=== PATIENT | female | born 1950 | race African-American/Black ===

== ENCOUNTER 2017-12-18 05:23 | Observation (INO) | payer MEDICARE ==
[2017-12-18 06:06] LABS: INR-International Normal Ratio 3.2; PTT 51.3 SEC (22.9-36.1)
[2017-12-18 06:22] LABS: ALT (SGPT) 16 U/L (8-55); AST (SGOT) 26 U/L (5-34); Albumin 4.2 g/dL (3.4-4.8); Alkaline Phosphatase 107 U/L (40-150); Anion Gap 13 mmol/L (10-20); BUN (Urea Nitrogen) 38 mg/dL (9.8-20.1); Calc. Creatinine Clearance 0 mL/min (70-130); Calcium 10.6 mg/dL (7.8-10.44); Carbon Dioxide 28 mmol/L (23-31); Chloride 104 mmol/L (98-107); Estimated GFR-MDRD 45; Globulin 3.5 g/dL (2.4-3.5); Glucose 213 mg/dL (80-115); Potassium 3.9 mmol/L (3.5-5.1); Protein, Total 7.7 g/dL (6.0-8.3); Sodium 141 mmol/L (136-145)
[2017-12-18 06:23] LABS: #Basophils 0.1 thou/uL (0.0-0.2); #Lymphocytes 0.8 thou/uL (1.20-3.40); #Monocytes 0.6 thou/uL (0.11-0.59); #Neutrophils 4.9 thou/uL (1.40-6.50); %Basophils 0.8 % (0.0-1.0); %Eosinophils 0.6 % (0.0-10.0); %Lymphocytes 12.4 % (21.0-51.0); %Neutrophils 77.2 % (42.0-75.0); Hemoglobin 11.2 g/dL (12.0-16.0); Mean Corpuscular HGB CONC 35.1 g/dL (32.0-36.0); Mean Corpuscular Hemoglobin 29.9 pg (27.0-31.0); Mean Corpuscular Volume 85.3 fL (78.0-98.0); Mean Platelet Volume 9.7 fL (7.4-10.4); PLT Morphology Comment Appears Decreased; Platelet Count 95 thou/uL (130-400); RBC Distribution Width 16.1 % (11.5-14.5); Red Blood Cell (RBC) Count 3.76 mill/uL (4.20-5.40); White Blood Cell (WBC) Count 6.4 thou/uL (4.8-10.8)
[2017-12-18] MEDS ORDERED: Fentanyl 100 MCG/2 ML VIAL ONE (06:32)
--- NOTE | 2017-12-18 06:45 | PDOC.FPRHP ---
- History of Present Illness Chief Complaint: epistaxis History of Present Illness: Patient presents from [place] ED for persistent epistaxis that began at midnight last night. Was packed 3 times in [place], last time with using afferin. No hx trauma. Now reports continued dripping down throat and some anterior dripping past packing. Has history of nose bleeds but never this bad. Last one 2 weeks ago. PCP Ash Alegre in [place]. Pt lives in [place]. ED Course: fentanyl - Allergies/Adverse Reactions Allergies Allergy/AdvReac Type Severity Reaction Status Date / Time No Known Allergies Allergy Verified 12/18/17 09:03 - Home Medications Medication Instructions Recorded Confirmed Type Ascorbic Acid [Vitamin C] 500 mg PO DAILY 12/18/17 12/18/17 History Atorvastatin Calcium 20 mg PO HS 12/18/17 12/18/17 History Furosemide 80 mg PO SEEPHYS 12/18/17 12/18/17 History Iron 27 mg PO DAILY 12/18/17 12/18/17 History Omeprazole 20 mg PO DAILY 12/18/17 12/18/17 History Pnv No.95/Ferrous Fum/Folic AC 1 each PO DAILY 12/18/17 12/18/17 History [ Formula] Potassium 1 tab PO DAILY 12/18/17 12/18/17 History Sennosides 17.2 mg PO HS PRN 12/18/17 12/18/17 History Spironolactone 25 mg PO DAILY 12/18/17 12/18/17 History Warfarin Sodium 7 mg PO DAILY 12/18/17 12/18/17 History glipiZIDE [Glucotrol XL] 2.5 mg PO QAM-WM 12/18/17 12/18/17 History - History PMHx: CHF, DM, HLD, HTN, a fib PSHx: valve replacement, tubal, L wrist FHx: Noncontributory Social: Lives at home with 2 grandchildren. Ambulates with walker. Denies tobacco, alcohol, drug use. - Review of Systems General: reports: fatigue. denies: fever/chills ENT: reports: other (epistaxis bilateral) Respiratory: denies: cough, shortness of breath Cardiovascular: denies: palpitation, edema Gastrointestinal: denies: vomiting, diarrhea Skin: denies: rashes, lesions Musculoskeletal: denies: tenderness, swelling Neurological: denies: syncope, seizure Psychological: denies: anxiety, depression - Vital signs BP: 133/77 HR: 89 Pox: 97% on RA Wt: 81 kg - Physical Exam Constitutional: other (tired, uncomfortable from packing, difficult to speak) HEENT: normocephalic and atraumatic, grossly normal vision, grossly normal hearing, other (bilateral nasal packing in place, starting to soak through. No post nasal bleeding seen. mucus membranes dry.) Neck: FROM, trachea midline Heart: RRR, normal S1/S2, other (3/6 systolic murmur) Lungs: CTAB, no respiratory distress Abdomen: soft, bowel sounds present Musculoskeletal: normal structure, normal tone Neurological: no focal deficit Skin: no rash/lesions FMR H&P: Results - Labs Result Diagrams: 12/18/17 12:03 12/18/17 12:03 Lab results: WBC 6.4 thou/uL (4.8-10.8) 12/18/17 05:49 Hgb 11.2 g/dL (12.0-16.0) L 12/18/17 05:49 Hct 32.1 % (36.0-47.0) L 12/18/17 05:49 MCV 85.3 fL (78.0-98.0) 12/18/17 05:49 Plt Count 95 thou/uL (130-400) L 12/18/17 05:49 Neutrophils % 77.2 % (42.0-75.0) H 12/18/17 05:49 Sodium 141 mmol/L (136-145) 12/18/17 05:49 Potassium 3.9 mmol/L (3.5-5.1) 12/18/17 05:49 Chloride 104 mmol/L (98-107) 12/18/17 05:49 Carbon Dioxide 28 mmol/L (23-31) 12/18/17 05:49 BUN 38 mg/dL (9.8-20.1) H 12/18/17 05:49 Creatinine 1.40 mg/dL (0.6-1.1) H 12/18/17 05:49 Glucose 213 mg/dL (80-115) H 12/18/17 05:49 Calcium 10.6 mg/dL (7.8-10.44) H 12/18/17 05:49 Total Bilirubin 1.0 mg/dL (0.2-1.2) 12/18/17 05:49 AST 26 U/L (5-34) 12/18/17 05:49 ALT 16 U/L (8-55) 12/18/17 05:49 Alkaline Phosphatase 107 U/L (40-150) 12/18/17 05:49 Serum Total Protein 7.7 g/dL (6.0-8.3) 12/18/17 05:49 Albumin 4.2 g/dL (3.4-4.8) 12/18/17 05:49 FMR H&P: A/P - Problem List (1) Epistaxis Current Visit: Yes Status: Acute Code(s): R04.0 - EPISTAXIS (2) MRIIAM (acute kidney injury) Current Visit: Yes Status: Acute Code(s): N17.9 - ACUTE KIDNEY FAILURE, UNSPECIFIED (3) CKD (chronic kidney disease) Current Visit: Yes Status: Acute Code(s): N18.9 - CHRONIC KIDNEY DISEASE, UNSPECIFIED (4) Heart valve replaced Current Visit: Yes Status: Acute Code(s): Z95.2 - PRESENCE OF PROSTHETIC HEART VALVE (5) Atrial fibrillation Current Visit: Yes Status: Acute Code(s): I48.91 - UNSPECIFIED ATRIAL FIBRILLATION (6) CHF (congestive heart failure) Current Visit: Yes Status: Acute Code(s): I50.9 - HEART FAILURE, UNSPECIFIED (7) Diabetes Current Visit: Yes Status: Acute Code(s): E11.9 - TYPE 2 DIABETES MELLITUS WITHOUT COMPLICATIONS (8) HTN (hypertension) Current Visit: Yes Status: Acute Code(s): I10 - ESSENTIAL (PRIMARY) HYPERTENSION (9) HLD (hyperlipidemia) Current Visit: Yes Status: Acute Code(s): E78.5 - HYPERLIPIDEMIA, UNSPECIFIED - Plan 67 year old F with hx of afib, valve replacement on warfarin presents with persistent epistaxis Persistent epistaxis, nontraumatic - 3rd packing in place, bilaterally. Current packed placed around 4-5am. Bleeding appears to have slowed. - on warfarin with supratherapeutic INR of 3.2. Hold warfarin for now. - VSS - will plan to remove packing this am. If epistaxis persists will consider ENT consult. CKD with possible MIRIAM - unknown baseline, pt reports some mild kidney disease - mucous membranes seem dry - LR @125, however considering hx of CHF may discontinue fluids later this am Normocytic Anemia - Hgb 11.2 - hx of anemia, takes iron supplements Atrial fibrillation - with supratherapeutic INR on warfarin DM - on glipizide at home - accuchecks, SSI CHF - unknown EF - on furosemide 80 bid and spironolactone at home HLD - on atorvastatin at home Hx heart valve replacement Code: FULL Dispo: admit to medicine floor for observation. Possible d/c later today pending epistaxis resolution. FMR H&P: Upper Level - Pertinent history 67 yo AAF with PMH of afib on chronic anticoagulation, HTN, DM2, CHF presenting with recurrent nosebleed. Pt reports began early this morning and could not control it, presented to [place] ER where despite multiple attempts at placing nasal rockets and afrin, bleeding continued. Pt has experienced this before but not to this degree. She notes it is difficult to speak due to discomfort but denies other complaints. PCP: Dr. Ash [place], [place] - Pertinent findings Gen: well developed in NAD HEENT: intranasal packing BL, left blood tinged, mildly dry MMs CV: RRR Resp: normal effort, good air movement - Plan Date/Time: 12/18/17 0645 I, Albino Ahmadi MD PGY3, have evaluated this patient and agree with findings/ plan as outlined by security intern resident. Pertinent changes/additions are listed here. 1. Nontraumatic epistaxis in setting of supratherapeutic INR -Pt on chronic anticoagulation due to hx of atrial fibrillation and presents with difficult to control epistaxis and mildly supratherapeutic INR of 3.4. -Will observe for resolution and consider ENT consult if further intervention needed. -Hgb stable and pt not tachycardic indicating minimal blood loss. -INR already downtrended to 3.2, continue to monitor. 2. Supratherapeutic INR -Continue to monitor 3. MIRIAM -LR @ 125, continue to monitor 4. Normocytic anemia -Stable with no need for intervention at this time, continue to monitor Home medications will be continued for chronic medical conditions. FULL code PPx: Warfarin for VTE, no GI indicated. disposition: Admit to medical observation for anticipated length of stay less than two midnights, pending clinical course. Attending Addendum - Attending Addendum Date/Time: 12/18/17 3070 I personally evaluated the patient and discussed the management with Dr. Mayfield. I agree with the History, Examination, Assessment and Plan documented above with any addition or exceptions noted below. The patient was transferred from outside er for persistent epistaxis. ENT is being consulted as she continues to bleed. Will will repeat H/H later today. Trying to determine what type of valve the patient has so that we can see if INR is supratherapeutic or therapeutic. Pharmacy will help get med rec. Will follow ENT recs.
[2017-12-18] MEDS ORDERED: Ondansetron ODT 4 MG TAB SL PRN (07:58)
[2017-12-18] MEDS ORDERED: Ondansetron PF 4 MG/2 ML Vial IVP PRN ×2 (07:58→08:19)
[2017-12-18] MEDS ORDERED: Dextrose 50% Abboject 50 ML SYRINGE SLOW IVP PRN (08:19)
[2017-12-18] MEDS ORDERED: Dextrose 5% in Water 1,000 ML IV PRN (08:19)
[2017-12-18 08:47] VITALS: BMI 34.5
[2017-12-18] MEDS: Lactated Ringer's 1,000 ML IV SCH ×2 (09:35→16:03)
[2017-12-18] MEDS ORDERED: Oxymetazoline HCl 0.05% ( 15 ML ) NASAL SCH (10:00)
--- NOTE | 2017-12-18 12:31 | CON ---
DATE OF CONSULTATION: 12/18/2017 REASON FOR CONSULTATION: The patient seen for evaluation of epistaxis. BRIEF HISTORY: This is a 67-year-old female who is currently on blood thinners. She noted that she had a nosebleed that started on her left side last night around midnight. She presented to the emerg ency room. She reports by that time she felt she had blood coming from both nostrils, had placed pac ks bilaterally and reports that the bleeding has been continued, but intermittent. PAST MEDICAL HISTORY: Coronary artery disease, hypertension, atrial fibrillation, aortic valve repla cement. PAST SURGICAL HISTORY: Aortic valve replacement. MEDICATIONS: See attached medication list. PHYSICAL EXAMINATION: GENERAL: The patient is resting comfortably in bed. HEENT: Bilateral nasal packs are in place. There is no current active bleeding. Afrin was placed i nto the nasal cavity. Oral cavity, pharynx, no active red bleeding is noticed unless the patient s trains. EARS: TMs intact. Middle ears are well aerated. NECK: No lymphadenopathy or masses. PROCEDURE: Left pack was removed and an inflatable Rhinorocket pack was placed in the left nasal cav ity and was inflated with 4 mL of normal saline. There was no further active bleeding. ASSESSMENT: 1. Epistaxis. 2. Bleeding disorder from medication use. PLAN: We will leave her bilateral packs in place, tomorrow we anticipate removing the right nasal pa ck if there is no further bleeding and possibly remove the left nasal pack on Monday. In the mean time her primary care team will help assist with her Coumadin levels.
[2017-12-18 12:41] LABS: Hemoglobin 10.9 g/dL (12.0-16.0); Platelet Count 96 thou/uL (130-400)
[2017-12-18 13:27] LABS: ALT (SGPT) 14 U/L (8-55); AST (SGOT) 26 U/L (5-34); Alkaline Phosphatase 97 U/L (40-150); Anion Gap 14 mmol/L (10-20); BUN (Urea Nitrogen) 35 mg/dL (9.8-20.1); Calc. Creatinine Clearance 58 mL/min (70-130); Calcium 10.4 mg/dL (7.8-10.44); Carbon Dioxide 27 mmol/L (23-31); Chloride 106 mmol/L (98-107); Estimated GFR-MDRD 52; Globulin 3.3 g/dL (2.4-3.5); Glucose 167 mg/dL (80-115); Protein, Total 7.3 g/dL (6.0-8.3); Sodium 143 mmol/L (136-145)
[2017-12-18] MEDS ORDERED: Senokot 8.6 MG TAB PO PRN (15:51)
[2017-12-18] MEDS: Furosemide 80 MG TAB PO SCH (16:32)
[2017-12-18] MEDS: Atorvastatin Calcium 20 MG TAB PO SCH (20:01)
[2017-12-18] MEDS: Acetaminophen 325 MG TAB PO PRN (22:18)
[2017-12-19] MEDS: Lactated Ringer's 1,000 ML IV SCH ×2 (00:42→07:29)
[2017-12-19 04:41] LABS: Hemoglobin 10.1 g/dL (12.0-16.0)
[2017-12-19] MEDS: Acetaminophen 325 MG TAB PO PRN ×2 (04:41→17:10)
[2017-12-19 04:53] LABS: Prothrombin Time 31.2 SEC (12.0-14.7)
--- NOTE | 2017-12-19 06:55 | PDOC.FM ---
- Subjective Subjective: Pt reports feeling well this AM. Reports she believes the bleeding has stopped. Tolerating good PO intake. No complaints at this time. no fever/chills, no cp no palpitations, no sob no cough - Objective MAR Reviewed: Yes Vital Signs & Weight: Vital Signs (12 hours) Temp Pulse Resp BP Pulse Ox 12/19/17 04:00 98.7 F 52 L 20 125/77 95 12/19/17 00:00 99.4 F 96 20 109/66 94 L 12/18/17 19:30 98.7 F 106 H 20 135/81 92 L Weight Weight 85.757 kg Result Diagrams: 12/19/17 04:30 12/18/17 12:03 <Alexsander Boyer - Last Filed: 12/19/17 07:59> - Objective Vital Signs & Weight: Vital Signs (12 hours) Temp Pulse Resp BP Pulse Ox 12/19/17 16:47 100.3 F H 99 20 148/78 H 94 L 12/19/17 12:21 98.5 F 109 H 18 160/83 H 93 L 12/19/17 07:43 98.1 F 104 H 20 146/81 H 91 L Weight Weight 85.757 kg Result Diagrams: 12/19/17 04:30 12/18/17 12:03 <Debbie Tsang - Last Filed: 12/19/17 17:11> Phys Exam - Physical Examination Constitutional: NAD HEENT: moist MMs, sclera anicteric Neck: no JVD, supple Respiratory: no wheezing, clear to auscultation bilateral Cardiovascular: RRR grade 2/6 holosystolic murmur Gastrointestinal: soft, non-tender Musculoskeletal: no edema, pulses present Neurological: non-focal, normal sensation Psychiatric: normal affect, A&O x 3 Skin: no rash, normal turgor <Alexsander Boyer - Last Filed: 12/19/17 07:59> Dx/Plan (1) Epistaxis Code(s): R04.0 - EPISTAXIS Status: Acute (2) CKD (chronic kidney disease) Code(s): N18.9 - CHRONIC KIDNEY DISEASE, UNSPECIFIED Status: Acute (3) Diabetes Code(s): E11.9 - TYPE 2 DIABETES MELLITUS WITHOUT COMPLICATIONS Status: Acute (4) HLD (hyperlipidemia) Code(s): E78.5 - HYPERLIPIDEMIA, UNSPECIFIED Status: Acute (5) HTN (hypertension) Code(s): I10 - ESSENTIAL (PRIMARY) HYPERTENSION Status: Acute - Plan Plan: 67 year old F with hx of afib, valve replacement on warfarin presents with persistent epistaxis Persistent epistaxis, nontraumatic A- Bleeding slowed after 3 packings, ENT was consulted. Pt on warfarin with supratherapeutic INR of 3.2 on presentation, held warfarin yesterday, INR now 3.0 P- Per ENT will remove one nostril packing today, the other tomorrow. -f/u ENT recs CKD A- Cr. 1.25 on admission, this is her baseline per PCP P- LR @125 as pt reported difficulty swallowing with packing discomfort. Concern for inadequate PO intake. Will DC fluids if pt demonstrates good intake Normocytic Anemia - Hgb 11.2 - hx of anemia, takes iron supplements Atrial fibrillation A- with supratherapeutic INR on warfarin, warfarin held yesterday P- will restart today with plans for pharm recs decreasing 2/7 days dose to 5mg will leaving the other 5/7 days 7.5mg DM - home meds - accuchecks, SSI CHF - home meds HLD - home atorvastatin Hx heart valve replacement - aware Code: FULL <Alexsander Boyer - Last Filed: 12/19/17 07:59> (1) Epistaxis Code(s): R04.0 - EPISTAXIS Status: Acute (2) MIRIAM (acute kidney injury) Code(s): N17.9 - ACUTE KIDNEY FAILURE, UNSPECIFIED Status: Acute (3) CKD (chronic kidney disease) Code(s): N18.9 - CHRONIC KIDNEY DISEASE, UNSPECIFIED Status: Acute (4) Heart valve replaced Code(s): Z95.2 - PRESENCE OF PROSTHETIC HEART VALVE Status: Acute (5) Atrial fibrillation Code(s): I48.91 - UNSPECIFIED ATRIAL FIBRILLATION Status: Acute (6) CHF (congestive heart failure) Code(s): I50.9 - HEART FAILURE, UNSPECIFIED Status: Acute (7) Diabetes Code(s): E11.9 - TYPE 2 DIABETES MELLITUS WITHOUT COMPLICATIONS Status: Acute (8) HTN (hypertension) Code(s): I10 - ESSENTIAL (PRIMARY) HYPERTENSION Status: Acute (9) HLD (hyperlipidemia) Code(s): E78.5 - HYPERLIPIDEMIA, UNSPECIFIED Status: Acute <Debbie Tsang - Last Filed: 12/19/17 17:11> Attending Addendum - Attending Addendum Date/Time: 12/19/17 1710 I personally evaluated the patient and discussed the management with Dr. Boyer. I agree with the History, Examination, Assessment and Plan documented above with any addition or exceptions noted below. ENT will remove packing from one side. She still had some blood coming from right nares. Following INR. <Debbie Tsang - Last Filed: 12/19/17 17:11>
[2017-12-19] MEDS: Spironolactone 25 MG TAB PO SCH (07:28)
[2017-12-19] MEDS: Ferrous Sulfate 325 MG TAB PO SCH (07:28)
[2017-12-19] MEDS: Ascorbic Acid 500 mg Chewable Tablet PO SCH (07:28)
[2017-12-19] MEDS: Furosemide 80 MG TAB PO SCH ×2 (07:28→17:10)
[2017-12-19] MEDS: Prenatal Vitamin 1 TAB PO SCH (07:29)
[2017-12-19] MEDS: HumaLOG 300 UNITS/3 ML VIAL SC PRN ×2 (11:31→19:59)
--- NOTE | 2017-12-19 16:58 | PRG ---
DATE OF SERVICE: 12/19/2017 SUBJECTIVE: Postoperative visit for epistaxis secondary to Coumadin being out of control. Patient c urrently has 2 packing in both nostrils left and right. Patient reports that overall is doing much b helder. Feels like there is still a little bit thin leaking on the right side, but no active bleeding since packing was placed in yesterday. OBJECTIVE: The patient is well-developed and well-nourished. She is in no acute distress. Both pac kings appear to be in place. There is no active bleeding that can be seen and today, right packing w ill be removed. ASSESSMENT: Epistaxis. PLAN: 1. Right packing was removed without any difficulty. Small clot was also removed; however, no activ e bleeding. 2. Dr. Kaufman to stopping on patient tomorrow to remove left nasal packing. 3. Hospitalist to continue monitoring Coumadin for blood thinning.
[2017-12-19] MEDS ORDERED: Warfarin Sodium 5 MG TAB PO SCH (17:00)
[2017-12-19] MEDS: Atorvastatin Calcium 20 MG TAB PO SCH (19:59)
[2017-12-20] MEDS: Acetaminophen 325 MG TAB PO PRN (00:52)
[2017-12-20 05:53] LABS: INR-International Normal Ratio 2.6; Prothrombin Time 27.9 SEC (12.0-14.7)
[2017-12-20 06:06] LABS: Hemoglobin 10.6 g/dL (12.0-16.0)
--- NOTE | 2017-12-20 07:02 | PDOC.FM ---
- Subjective Subjective: Pt reports feeling well this AM. Relief from having R nare packing pulled yesterday. Denies nose bleed but has had some congestion. No fevers/chills, no cp no palpitations, no sob no cough - Objective MAR Reviewed: Yes Vital Signs & Weight: Vital Signs (12 hours) Temp Pulse Resp BP Pulse Ox 12/20/17 04:00 99.2 F 107 H 20 131/88 92 L 12/20/17 00:48 99.4 F 106 H 18 133/76 92 L 12/19/17 19:17 99.1 F 100 20 110/54 L 94 L Weight Weight 85.757 kg I&O: 12/19/17 12/20/17 12/21/17 06:59 06:59 06:59 Intake Total 900 Balance 900 Result Diagrams: 12/20/17 07:49 12/18/17 12:03 <Alexsander Boyer - Last Filed: 12/20/17 08:21> - Objective Vital Signs & Weight: Vital Signs (12 hours) Temp Pulse Resp BP BP BP Pulse Ox 12/20/17 11:22 98.7 F 97 20 121/74 121/74 94 L 12/20/17 07:56 98.4 F 104 H 18 146/84 H 93 L 12/20/17 04:00 99.2 F 107 H 20 131/88 92 L 12/20/17 00:48 99.4 F 106 H 18 133/76 92 L Weight Weight 85.757 kg I&O: 12/19/17 12/20/17 12/21/17 06:59 06:59 06:59 Intake Total 900 Balance 900 Result Diagrams: 12/20/17 07:49 12/18/17 12:03 <Debbie Tsang - Last Filed: 12/20/17 11:44> Phys Exam - Physical Examination Constitutional: NAD HEENT: moist MMs, sclera anicteric Neck: no JVD, full ROM Respiratory: no wheezing, clear to auscultation bilateral Cardiovascular: RRR grade 2/6 holosystolic murmur Gastrointestinal: soft, non-tender Musculoskeletal: no edema, pulses present Neurological: normal sensation, moves all 4 limbs Psychiatric: normal affect, A&O x 3 Skin: normal turgor, cap refill <2 seconds <Alexsander Boyer - Last Filed: 12/20/17 08:21> Dx/Plan (1) Epistaxis Code(s): R04.0 - EPISTAXIS Status: Acute (2) CKD (chronic kidney disease) Code(s): N18.9 - CHRONIC KIDNEY DISEASE, UNSPECIFIED Status: Acute (3) Diabetes Code(s): E11.9 - TYPE 2 DIABETES MELLITUS WITHOUT COMPLICATIONS Status: Acute (4) HLD (hyperlipidemia) Code(s): E78.5 - HYPERLIPIDEMIA, UNSPECIFIED Status: Acute (5) HTN (hypertension) Code(s): I10 - ESSENTIAL (PRIMARY) HYPERTENSION Status: Acute - Plan Plan: 67 year old F with hx of afib, valve replacement on warfarin presents with persistent epistaxis Persistent epistaxis, nontraumatic A- Bleeding resolved, ENT is consulted. Pt on warfarin with supratherapeutic INR of 3.2 on presentation, adjusted warfarin dosing per pharmacy recs yesterday , INR now 2.6. ENT removed one packing yesterday P- Plans for other packing to be removed today -f/u ENT recs sinus tachycardia A- HR 107 this AM, temp up to 100.3 F with 3 day hx of packing. Pt denies symptoms of infection and reports feeling well overall but is at risk for Staph. ENT has plans to pull packing today. P- will get CBC this AM -continue to monitor vitals -possible L nare packing to be pulled today per ENT CKD A- Cr. 1.25 on admission, this is her baseline per PCP P- continued PO intake Normocytic Anemia - Hgb 10.6, up from yesterday - hx of anemia, takes iron supplements Atrial fibrillation A- warfarin restarted per pharm recs P- Warfarin 5mg TuTh, Warfarin 7.5mg [id number] DM - home meds - accuchecks, SSI CHF - home meds HLD - home atorvastatin Hx heart valve replacement - aware Code: FULL <Alexsander Boyer - Last Filed: 12/20/17 08:21> (1) Epistaxis Code(s): R04.0 - EPISTAXIS Status: Acute (2) MIRIAM (acute kidney injury) Code(s): N17.9 - ACUTE KIDNEY FAILURE, UNSPECIFIED Status: Acute (3) CKD (chronic kidney disease) Code(s): N18.9 - CHRONIC KIDNEY DISEASE, UNSPECIFIED Status: Acute (4) Heart valve replaced Code(s): Z95.2 - PRESENCE OF PROSTHETIC HEART VALVE Status: Acute (5) Atrial fibrillation Code(s): I48.91 - UNSPECIFIED ATRIAL FIBRILLATION Status: Acute (6) CHF (congestive heart failure) Code(s): I50.9 - HEART FAILURE, UNSPECIFIED Status: Acute (7) Diabetes Code(s): E11.9 - TYPE 2 DIABETES MELLITUS WITHOUT COMPLICATIONS Status: Acute (8) HTN (hypertension) Code(s): I10 - ESSENTIAL (PRIMARY) HYPERTENSION Status: Acute (9) HLD (hyperlipidemia) Code(s): E78.5 - HYPERLIPIDEMIA, UNSPECIFIED Status: Acute <Debbie Tsang - Last Filed: 12/20/17 11:44> Attending Addendum - Attending Addendum Date/Time: 12/20/17 2653 I personally evaluated the patient and discussed the management with Dr. Boyer. I agree with the History, Examination, Assessment and Plan documented above with any addition or exceptions noted below. Pt still has packing in left nares. This will likely be removed by ENT. She had a temp of 100.3 overnight. She denies shortness of breath, pain. Will coordinate with ENT. <Debbie Tsang - Last Filed: 12/20/17 11:44>
[2017-12-20 08:05] LABS: #Basophils 0.1 thou/uL (0.0-0.2); #Eosinphils 0.1 thou/uL (0.0-0.7); #Lymphocytes 1.1 thou/uL (1.20-3.40); #Monocytes 0.7 thou/uL (0.11-0.59); #Neutrophils 4.9 thou/uL (1.40-6.50); %Eosinophils 1.6 % (0.0-10.0); %Lymphocytes 15.8 % (21.0-51.0); %Monocytes 9.7 % (0.0-10.0); %Neutrophils 71.9 % (42.0-75.0); Hemoglobin 10.9 g/dL (12.0-16.0); Mean Corpuscular HGB CONC 34.3 g/dL (32.0-36.0); Mean Corpuscular Hemoglobin 29.7 pg (27.0-31.0); Mean Corpuscular Volume 86.5 fL (78.0-98.0); Mean Platelet Volume 9.2 fL (7.4-10.4); Platelet Count 101 thou/uL (130-400); RBC Distribution Width 16.1 % (11.5-14.5); Red Blood Cell (RBC) Count 3.68 mill/uL (4.20-5.40); White Blood Cell (WBC) Count 6.9 thou/uL (4.8-10.8)
[2017-12-20] MEDS: Spironolactone 25 MG TAB PO SCH (08:22)
[2017-12-20] MEDS: Ascorbic Acid 500 mg Chewable Tablet PO SCH (08:22)
[2017-12-20] MEDS: Furosemide 80 MG TAB PO SCH ×2 (08:22→16:35)
[2017-12-20] MEDS: Potassium Chloride 8 MEQ TAB PO SCH (08:22)
[2017-12-20] MEDS: Ferrous Sulfate 325 MG TAB PO SCH (08:23)
[2017-12-20] MEDS: Prenatal Vitamin 1 TAB PO SCH (08:23)
[2017-12-20] MEDS: HumaLOG 300 UNITS/3 ML VIAL SC PRN ×2 (11:56→17:35)
[2017-12-20] MEDS ORDERED: Warfarin Sodium 7.5 MG TAB PO SCH (17:00)
[2017-12-20] MEDS: Atorvastatin Calcium 20 MG TAB PO SCH (19:54)
--- NOTE | 2017-12-21 03:13 | DIS-2 ---
DATE OF ADMISSION: 12/18/2017 DATE OF DISCHARGE: 12/20/2017 RESIDENT: Alexsander Boyer MD ADMITTING ATTENDING: Ada Valdez M.D. DISCHARGE ATTENDING: Dr. Debbie Tsang. CONSULTATIONS: ENT. PROCEDURES: None. PRIMARY DIAGNOSIS: Intractable epistaxis. SECONDARY DIAGNOSES: Atrial fibrillation, diabetes mellitus, congestive heart failure. DISCHARGE MEDICATIONS: 1. Glipizide 2.5 mg p.o. q.a.m. 2. Sennosides 17.2 mg p.o. at bedtime p.r.n. 3. Potassium 99 mg p.o. daily. 4. Iron 27 mg p.o. daily. 5. Vitamin C 500 mg p.o. daily. 6. vitamin 1 each p.o. daily. 7. Atorvastatin calcium 20 mg p.o. at bedtime. 8. Spironolactone 25 mg p.o. daily. 9. Omeprazole 20 mg p.o. daily. 10. Furosemide 80 mg p.o. SEEPHYS 11. Acetaminophen 650 mg p.o. q.6 hours p.r.n. 12. Amoxicillin potassium clavulanate (Augmentin) 875 mg b.i.d. for 3 days. 11. Warfarin sodium 7.5 mg on Mondays, Wednesdays, Fridays, Saturdays, and Sundays; 5 mg on Tuesdays and . DISCONTINUED MEDICATIONS: Warfarin sodium 7.5 mg p.o. daily. HISTORY OF PRESENT ILLNESS/HOSPITAL COURSE: This is a 67-year-old female with past medical history of atrial fibrillation on warfarin who presented to the ED with a 6-hour history of intractable epistaxis from outside ER. In outside ER, patient had received 3 separate nasal packings and the patient's bleeding had not yet stopped. Patient had limited interview on presentation, as she was uncomfortable and unwilling to talk due to the drainage and epistaxis. Hemoglobin on presentation to [place] was 11.2. Patient denied other complaints at that time. INR was done and showed to have patient with INR of 3.2, which was deemed supratherapeutic after it was verified with PCP, the type of heart valve that the patient had. Warfarin dose was held on day 1 of hospitalization and patient's bleeding was resolved. Ears, nose, and throat was consulted for management of epistaxis and primary care team managed redosing her warfarin. On consultation with pharmacy, they recommended decreasing her warfarin dose from 7.5 mg daily to 7.5 mg daily on all days of the week except for Monday and , on which she would take only 5 mg p.o. Patient was resumed on this recommended schedule and showed a stabilization of INR within therapeutic range. One nasal packing was pulled the day after admission with the next nasal packing pulled the next day. Patient showed good toleration of disengagement of nasal packing and when patient was deemed stable for discharge with no further bleeding and stable hemoglobin and hematocrit. DISCHARGE INSTRUCTIONS: Patient was discharged home. 1. Disposition: Stable. 2. Location: Home. 3. Diet: Heart healthy. 4. Activity: As tolerated. 5. Follow up with primary care provider in 3 days. S[facility]
[2017-12-21] MEDS: Ascorbic Acid 500 mg Chewable Tablet PO SCH (08:26)
[2017-12-21] MEDS: Spironolactone 25 MG TAB PO SCH (08:26)
[2017-12-21] MEDS: Potassium Chloride 8 MEQ TAB PO SCH (08:26)
[2017-12-21] MEDS: Ferrous Sulfate 325 MG TAB PO SCH (08:27)
[2017-12-21] MEDS: Furosemide 80 MG TAB PO SCH (08:29)
[2017-12-21] MEDS: Prenatal Vitamin 1 TAB PO SCH (08:29)
--- NOTE | 2017-12-21 10:42 | PDOC.FM ---
- Subjective Subjective: Pt feelign well this morning. Reports bleeding has stopped though her nose was congested. Pt was discharged last night but could not find ride home. no fever/chills, no cp no palpitations, no nausea/vomiting - Objective MAR Reviewed: Yes Vital Signs & Weight: Vital Signs (12 hours) Temp Pulse Resp BP BP Pulse Ox 12/21/17 07:00 97.9 F 102 H 16 115/77 95 12/21/17 03:17 98.5 F 89 16 123/77 93 L 12/20/17 23:30 98.9 F 90 16 119/76 94 L Weight Weight 85.757 kg I&O: 12/20/17 12/21/17 12/22/17 06:59 06:59 06:59 Intake Total 900 960 Output Total 1200 Balance 900 -240 Result Diagrams: 12/20/17 07:49 12/18/17 12:03 <Alexsander Boyer - Last Filed: 12/21/17 10:45> - Objective Vital Signs & Weight: Vital Signs (12 hours) Temp Pulse Resp BP 12/21/17 11:00 98.0 F 88 16 122/77 Weight Weight 85.757 kg I&O: 12/20/17 12/21/17 12/22/17 06:59 06:59 06:59 Intake Total 900 960 Output Total 1200 Balance 900 -240 Result Diagrams: 12/20/17 07:49 12/18/17 12:03 <Debbie Tsang - Last Filed: 12/21/17 19:28> Phys Exam - Physical Examination Constitutional: NAD HEENT: moist MMs, sclera anicteric Neck: no JVD, supple Respiratory: no wheezing, clear to auscultation bilateral Cardiovascular: RRR, no significant murmur Gastrointestinal: soft, non-tender Musculoskeletal: no edema, pulses present Neurological: normal sensation, moves all 4 limbs Psychiatric: normal affect, A&O x 3 Skin: no rash, normal turgor <Alexsander Boyer - Last Filed: 12/21/17 10:45> Dx/Plan (1) Epistaxis Code(s): R04.0 - EPISTAXIS Status: Acute (2) CKD (chronic kidney disease) Code(s): N18.9 - CHRONIC KIDNEY DISEASE, UNSPECIFIED Status: Acute (3) Diabetes Code(s): E11.9 - TYPE 2 DIABETES MELLITUS WITHOUT COMPLICATIONS Status: Acute (4) HLD (hyperlipidemia) Code(s): E78.5 - HYPERLIPIDEMIA, UNSPECIFIED Status: Acute (5) HTN (hypertension) Code(s): I10 - ESSENTIAL (PRIMARY) HYPERTENSION Status: Acute - Plan Plan: Plan: 67 year old F with hx of afib, valve replacement on warfarin presents with persistent epistaxis Persistent epistaxis, nontraumatic A- resolved P- DC per ENT recs CKD A- Cr. 1.25 on admission, this is her baseline per PCP P- continued PO intake Normocytic Anemia - Hgb 10.6, up from day before - hx of anemia, takes iron supplements Atrial fibrillation A- warfarin restarted per pharm recs P- Warfarin 5mg TuTh, Warfarin 7.5mg MWFSaSu DM - home meds - accuchecks, SSI CHF - home meds HLD - home atorvastatin Dispo: already DCd, will leave when gets ride <Alexsander Boyer - Last Filed: 12/21/17 10:45> (1) Epistaxis Code(s): R04.0 - EPISTAXIS Status: Acute (2) MIRIAM (acute kidney injury) Code(s): N17.9 - ACUTE KIDNEY FAILURE, UNSPECIFIED Status: Acute (3) CKD (chronic kidney disease) Code(s): N18.9 - CHRONIC KIDNEY DISEASE, UNSPECIFIED Status: Acute (4) Heart valve replaced Code(s): Z95.2 - PRESENCE OF PROSTHETIC HEART VALVE Status: Acute (5) Atrial fibrillation Code(s): I48.91 - UNSPECIFIED ATRIAL FIBRILLATION Status: Acute (6) CHF (congestive heart failure) Code(s): I50.9 - HEART FAILURE, UNSPECIFIED Status: Acute (7) Diabetes Code(s): E11.9 - TYPE 2 DIABETES MELLITUS WITHOUT COMPLICATIONS Status: Acute (8) HTN (hypertension) Code(s): I10 - ESSENTIAL (PRIMARY) HYPERTENSION Status: Acute (9) HLD (hyperlipidemia) Code(s): E78.5 - HYPERLIPIDEMIA, UNSPECIFIED Status: Acute <Debbie Tsang - Last Filed: 12/21/17 19:28> Attending Addendum - Attending Addendum Date/Time: 12/21/17 1026 I personally evaluated the patient and discussed the management with Dr. Boyer. I agree with the History, Examination, Assessment and Plan documented above with any addition or exceptions noted below. The patient is doing well. Packs are out of noses. No significant bleed this morning. <Debbie Tsang - Last Filed: 12/21/17 19:28>
[2017-12-21 11:18] VITALS: BP 122/77; TEMP 98
== END 2017-12-21 11:03 | disposition home or self-care (01) ==
LOC: ERS 05:23 → T4-A 07:35
PROVIDERS: ADMIT Family Medicine; ATTEND Family Medicine
DX: R04.0 Epistaxis (principal); D68.32 Hemorrhagic disorder due to extrinsic circulating anticoagulants; T45.515A Adverse effect of anticoagulants, initial encounter; I13.0 Hypertensive heart and chronic kidney disease with heart failure and stage 1 through stage 4 chronic kidney disease, or unspecified chronic kidney disease; E11.22 Type 2 diabetes mellitus with diabetic chronic kidney disease; N18.9 Chronic kidney disease, unspecified; I50.9 Heart failure, unspecified; D63.1 Anemia in chronic kidney disease; E78.5 Hyperlipidemia, unspecified; I48.91 Unspecified atrial fibrillation; N17.9 Acute kidney failure, unspecified; I25.10 Atherosclerotic heart disease of native coronary artery without angina pectoris; Z79.899 Other long term (current) drug therapy; Z79.01 Long term (current) use of anticoagulants; Z79.84 Long term (current) use of oral hypoglycemic drugs; Z95.2 Presence of prosthetic heart valve
CPT/HCPCS: 80053 ×2; 82962 ×3; 85014 ×3; 85018 ×3; 85025 ×2; 85049; 85610 ×3; 85730; 86850; 86900; 86901; 87040; 96361 ×2; 96374; 99284; G0378 ×2; 36415; 36416; J3010

== ENCOUNTER 2018-11-23 18:51 | Inpatient (IN) | payer MEDICARE ==
[2018-11-23] MEDS ORDERED: Oxymetazoline HCl 0.05% (30 ML BOT) ONE (19:13)
[2018-11-23 20:11] LABS: #Basophils 0.1 thou/uL (0.0-0.2); #Lymphocytes 0.9 thou/uL (1.20-3.40); #Monocytes 0.5 thou/uL (0.11-0.59); #Neutrophils 5.5 thou/uL (1.40-6.50); %Basophils 0.9 % (0.0-1.0); %Eosinophils 0.2 % (0.0-10.0); %Lymphocytes 12.7 % (21.0-51.0); %Monocytes 7.3 % (0.0-10.0); %Neutrophils 78.9 % (42.0-75.0); Mean Corpuscular HGB CONC 36.4 g/dL (32.0-36.0); Mean Corpuscular Hemoglobin 30.7 pg (27.0-31.0); Mean Corpuscular Volume 84.5 fL (78.0-98.0); Mean Platelet Volume 9.4 fL (7.4-10.4); Platelet Count 101 thou/uL (130-400); RBC Distribution Width 15.5 % (11.5-14.5); Red Blood Cell (RBC) Count 3.57 mill/uL (4.20-5.40); White Blood Cell (WBC) Count 6.9 thou/uL (4.8-10.8)
[2018-11-23] MEDS ORDERED: HYDROcodone/Acetaminophen 5/325 mg Tablet ONE (20:12)
[2018-11-23 20:21] LABS: PTT 40.6 SEC (22.9-36.1)
[2018-11-23 20:37] LABS: ALT (SGPT) 13 U/L (8-55); Albumin 4.3 g/dL (3.4-4.8); Alkaline Phosphatase 113 U/L (40-110); Anion Gap 13 mmol/L (10-20); BUN (Urea Nitrogen) 41 mg/dL (9.8-20.1); Bilirubin, Total 0.8 mg/dL (0.2-1.2); Calc. Creatinine Clearance 0 mL/min (70-130); Calcium 10.7 mg/dL (7.8-10.44); Carbon Dioxide 28 mmol/L (23-31); Chloride 104 mmol/L (98-107); Estimated GFR-MDRD 45; Globulin 3.3 g/dL (2.4-3.5); Glucose 158 mg/dL (80-115); Potassium 3.5 mmol/L (3.5-5.1); Protein, Total 7.6 g/dL (6.0-8.3); Sodium 141 mmol/L (136-145)
[2018-11-23 21:03] LABS: CKMB 3.3 ng/mL (0-6.6)
[2018-11-23 21:07] LABS: AST (SGOT) 23 U/L (5-34)
--- NOTE | 2018-11-23 21:43 | PDOC.FPRHP ---
- History of Present Illness Chief Complaint: Epistaxis History of Present Illness: Mrs. Edwards is a 68 y/o female w/ a PMH significant for A-Fib w / RVR, aortic valve replacement, CHF, CKD, HTN and DM2 who presents to the ED with epistaxis. 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 She denies any traumatic falls, syncopal episodes, trauma to the nose or face or known coagulopathy, but does admit to a history of epistaxis in the past. She is currently taking Warfarin, but denies any recent changes to her medication regimen. She admits to an isolated episode of vomiting and transient feelings of nausea and a mild headache, but denies any feelings of dizziness or lightheadedness, visual or auditory disturbances, chest pain, palpitations, cough, ABD pain, diarrhea, dysuria, polyuria, hematochezia or melena. ED Course: Per the ED provider, Mrs. Edwards lost approximately 500 ml of blood due to her ongoing epistaxis. An anterior source could note be identified, and as a result Afrin-soaked gauze was insterted into each nare which substantially reduced the rate of flow, bilaterally. Additionally, Mrs. Edwards received NS 500 ml and [place] 5/325. No imaging was performed. Additionally, Mrs. Edwards was started on a Diltiazem Gtt at a rate of 5 mg/hr. - Allergies/Adverse Reactions Allergies Allergy/AdvReac Type Severity Reaction Status Date / Time No Known Allergies Allergy Verified 12/18/17 09:03 - Home Medications Medication Instructions Recorded Confirmed Type Ascorbic Acid [Vitamin C] 500 mg PO DAILY 12/18/17 11/24/18 History Atorvastatin Calcium 20 mg PO HS 12/18/17 11/24/18 History Furosemide 80 mg PO SEEPHYS 12/18/17 11/24/18 History Iron 27 mg PO DAILY 12/18/17 11/24/18 History Omeprazole 20 mg PO BID 12/18/17 11/24/18 History Pnv No.95/Ferrous Fum/Folic AC 1 each PO DAILY 12/18/17 11/24/18 History [ Formula Tablet] Potassium 1 tab PO DAILY 12/18/17 11/24/18 History Sennosides 8.6 mg PO HS PRN 12/18/17 11/24/18 History Spironolactone 25 mg PO DAILY 12/18/17 11/24/18 History glipiZIDE [Glucotrol XL] 2.5 mg PO QAM-WM 12/18/17 11/24/18 History Docusate Sodium [Stool Softener] 100 mg PO DAILY PRN 11/24/18 11/24/18 History Warfarin Sodium [Coumadin] 5 mg PO SEEPHYS 11/24/18 11/24/18 History Warfarin Sodium [Coumadin] 7.5 mg PO SEEPHYS 11/24/18 11/24/18 History Comments: Potassium 99 mg dietary supplement Iron 65 mg dietary supplement Atorvastatin 20 mg daily warfrain 5 mg. 1.5 tab -Mon. 1 tab monday Spirinolactone 25 mg daily Glipizide ER 2.5 mg daily Omeprazole 20 mg 2x a day Lasix 80 mg take 2 tabs in morning and 1 tab in evening - History PMHx: A-Fib, CHF, DM, HLD, HTN PSHx: Mechanical Aortic Valve Replacement, Bilateral Tubal Ligation, Unspecified Surgery (L Wrist), Tonsillectomy FHx: Father (Sickle Cell Disease) Social: Denies x3. Lives at home with 2 grandchildren and ambulates with a walker. - Review of Systems General: denies: fever/chills, weight/appetite/sleep changes, fatigue Eyes: denies: eye pain, vision changes ENT: denies: nasal congestion, rhinorrhea Respiratory: reports: shortness of breath. denies: cough, congestion, exercise intolerance Cardiovascular: denies: chest pain, edema, paroxysmal nocturnal dyspnea, orthopnea Gastrointestinal: reports: nausea, vomiting. denies: diarrhea, constipation, abdominal pain, GI bleeding Genitourinary: denies: incontinence, dysuria, polyuria Skin: denies: rashes, lesions, jaundice Musculoskeletal: denies: pain, tenderness, stiffness, swelling Neurological: denies: numbness, syncope, seizure, weakness Psychological: denies: anxiety, depression - Vital signs BP: [143/74] HR: [99] RR: [18] Tmax: [98.4] Pox: [95]% on [RA] Wt: [] - Physical Exam Constitutional: NAD, awake, alert and oriented, well developed HEENT: normocephalic and atraumatic, PERRLA, EOMI, conjunctiva clear, no scleral icterus, grossly normal vision, grossly normal hearing, MMM, oropharynx clear, other (Each nare was packed w/ almost no active bleeding noted.) Neck: supple, FROM, trachea midline, no LAD Chest: no-tender to palpation, no lesions Heart: normal S1/S2, no murmurs/rubs/gallops, pulses present, no edema Lungs: CTAB, no respiratory distress, good air movement, no rales/rhonchi, no wheezing, no retractions Abdomen: soft, non-tender, bowel sounds present, no masses/distention Musculoskeletal: normal structure, ROM grossly normal Neurological: no focal deficit, normal sensation Skin: no rash/lesions, no jaundice Heme/Lymphatic: no purpura, no petechia, no LAD Psychiatric: normal mood and affect, good judgment and insight, intact recent and remote memory FMR H&P: Results - Labs Result Diagrams: 11/24/18 02:05 11/24/18 02:05 Lab results: WBC 6.9 thou/uL (4.8-10.8) 11/23/18 19:49 Hgb 11.0 g/dL (12.0-16.0) L 11/23/18 19:49 Hct 30.2 % (36.0-47.0) L 11/23/18 19:49 MCV 84.5 fL (78.0-98.0) 11/23/18 19:49 Plt Count 101 thou/uL (130-400) L 11/23/18 19:49 Neutrophils % 78.9 % (42.0-75.0) H 11/23/18 19:49 Sodium 141 mmol/L (136-145) 11/23/18 19:49 Potassium 3.5 mmol/L (3.5-5.1) 11/23/18 19:49 Chloride 104 mmol/L (98-107) 11/23/18 19:49 Carbon Dioxide 28 mmol/L (23-31) 11/23/18 19:49 BUN 41 mg/dL (9.8-20.1) H 11/23/18 19:49 Creatinine 1.39 mg/dL (0.6-1.1) H 11/23/18 19:49 Glucose 158 mg/dL (80-115) H 11/23/18 19:49 Lactic Acid 1.4 mmol/L (0.5-2.2) 11/23/18 19:49 Calcium 10.7 mg/dL (7.8-10.44) H 11/23/18 19:49 Total Bilirubin 0.8 mg/dL (0.2-1.2) 11/23/18 19:49 AST 23 U/L (5-34) 11/23/18 19:49 ALT 13 U/L (8-55) 11/23/18 19:49 Alkaline Phosphatase 113 U/L (40-110) H 11/23/18 19:49 CK-MB (CK-2) 3.3 ng/mL (0-6.6) 11/23/18 19:49 Serum Total Protein 7.6 g/dL (6.0-8.3) 11/23/18 19:49 Albumin 4.3 g/dL (3.4-4.8) 11/23/18 19:49 - EKG Interpretation EKG: A. fib regular rate, LAD, Incomplete LBBB FMR H&P: A/P - Problem List (1) Atrial fibrillation Current Visit: No Status: Acute Code(s): I48.91 - UNSPECIFIED ATRIAL FIBRILLATION (2) CHF (congestive heart failure) Current Visit: No Status: Acute Code(s): I50.9 - HEART FAILURE, UNSPECIFIED (3) CKD (chronic kidney disease) Current Visit: No Status: Acute Code(s): N18.9 - CHRONIC KIDNEY DISEASE, UNSPECIFIED (4) Diabetes Current Visit: No Status: Acute Code(s): E11.9 - TYPE 2 DIABETES MELLITUS WITHOUT COMPLICATIONS (5) Epistaxis Current Visit: No Status: Acute Code(s): R04.0 - EPISTAXIS (6) HLD (hyperlipidemia) Current Visit: No Status: Acute Code(s): E78.5 - HYPERLIPIDEMIA, UNSPECIFIED (7) HTN (hypertension) Current Visit: No Status: Acute Code(s): I10 - ESSENTIAL (PRIMARY) HYPERTENSION (8) Heart valve replaced Current Visit: No Status: Acute Code(s): Z95.2 - PRESENCE OF PROSTHETIC HEART VALVE - Plan 1. Epistaxis, likely Posterior -Bleeding appears to be well-controlled at this time w/ Afrin-soaked packing -Patient appears to be hemodynamically stable w/ vital signs WNL -Physical exam unremarkable -H / Hct: 30.2. Stable compared to prior visits -PT: 31 / APTT: 40.6 / INR: 3 > Additional check planned for 11/24 @ 0600 -ENT Consult: Pending -Hold home anticoagulation medication regimen -Trend labs -Consider fluid resuscitation or blood transfusion if clinical picture deteriorates 2. A-Fib w/ RVR -Patient currently rate-controlled w/ Diltiazem Gtt @ 5 mg/hr -Hold home anticoagulation regimen 3. CHF -s/p Mechanical Aortic Valve replacement -Patient does not appear to be fluid-overloaded -Trops: 0.029, 0.029 -BNP: Pending -Held home lasix as pt may be fluid down from above -No sign of fluid overload. 4. DM2 -POC Glucose: 158 -Accuchecks ACHS -Mild Sliding Scale Insulin -Continue home medication regimen 5. MIRIAM -Cr: 1.39 -s/p NS 500 ml bolus -Trend labs 6. HTN -BP: 139/65 on 11/24 -Continue home medication regimen 7. HLD -Continue home medication regimen Code: Full Diet: Consistent Carbohydrate Activity: Ambulate w/ Assist DVT PPx: SCDs Dispo: Admit to Telemetry Floor for continued cardiac monitoring. Ensure hemodynamic stability and rate control. Await ENT recommendations. Expected LOS < 48H. FMR H&P: Upper Level - Pertinent history I was present with the international project engineer. I scribed the above HPI. I made edits as needed. - Pertinent findings No acute bleed noted coming from nose at this time. Nostrils packed. Appears to be stopped at this time. Cardio: Irregular Rhythm, Systolic murmur noted with valve click auscultated. Lungs: CTA-B, no wheezes or crackles. Ext: Chronic Venostasis. No pitting edema. - Plan Date/Time: 11/23/182140 I, Isidoro Tucker PGY-3, have evaluated this patient and agree with findings/ plan as outlined by international project engineer resident. Pertinent changes/additions are listed here. At this time we will admit pt for A. fib w/ RVR. Rate is currently controlled on Dilt at rate of 5. Will adjust drip as needed. Trop Indeterminate. Will continue to trend. Pt came in with uncontrolled epistaxsis. Seems to be stopped at this time. 500cc blood loss. Pt fluid down possible cause of RVR. Hgb appears stable compared to past visits. ENT consulted. Await recs. Pt has CHF w/ Aortic Valve Replacement. On warfarin. Holding at this time. INR w/n therapeutic range. Continue to trend. Will hold home lasix at this time due to recent blood loss. Cr stable compared to past visits. See above for detailed plan. Edited as needed. Addendum - Attending - Attending Attestation Date/Time: 11/24/18 7799 I personally evaluated the patient and discussed the management with Dr. Hernandez /Caitlin. I agree with the History, Examination, Assessment and Plan documented above with any addition or exceptions noted below. Patient with history of Afib and Aortic valve replacement here with epistaxis that was not controlled with pressure, now s/p rhinorocket in place. She requires coumadin for her Aortic valve replacement. She is currently between Afib and flutter. Will confirm who her child welfare caseworker is. She needs ENT evaluation for cautery of bleeding vessel since she is in need of continued anticoagulation. Consider rate control therapy, though her current rate has been less than 100.
[2018-11-23 23:20] LABS: Troponin I 0.029 ng/mL (< 0.028)
[2018-11-23] MEDS ORDERED: Dextrose 5% in Water 1,000 ML IV PRN (23:34)
[2018-11-23] MEDS ORDERED: Dextrose 50% Abboject 50 ML SYRINGE SLOW IVP PRN (23:34)
[2018-11-23] MEDS ORDERED: Diltiazem HCl 125 MG, Admixture Fee 1 EACH in Sodium Chloride 0.9% 100 ML IVPB SCH (23:45)
[2018-11-23 23:48] VITALS: BMI 29.2
[2018-11-24] MEDS ORDERED: Ondansetron ODT 4 MG TAB PO PRN (00:01)
[2018-11-24] MEDS ORDERED: Calcium Carbonate 500 MG ChewTAB PO PRN (00:01)
[2018-11-24 02:30] LABS: #Basophils 0.1 thou/uL (0.0-0.2); #Lymphocytes 0.8 thou/uL (1.20-3.40); #Monocytes 0.5 thou/uL (0.11-0.59); #Neutrophils 4.7 thou/uL (1.40-6.50); %Basophils 0.9 % (0.0-1.0); %Eosinophils 0.2 % (0.0-10.0); %Lymphocytes 12.7 % (21.0-51.0); %Monocytes 8.5 % (0.0-10.0); %Neutrophils 77.7 % (42.0-75.0); Hemoglobin 9.8 g/dL (12.0-16.0); Mean Corpuscular HGB CONC 36.6 g/dL (32.0-36.0); Mean Corpuscular Hemoglobin 30.7 pg (27.0-31.0); Mean Platelet Volume 9.5 fL (7.4-10.4); Platelet Count 91 thou/uL (130-400); RBC Distribution Width 15.4 % (11.5-14.5); Red Blood Cell (RBC) Count 3.19 mill/uL (4.20-5.40); White Blood Cell (WBC) Count 6.1 thou/uL (4.8-10.8)
[2018-11-24 02:54] LABS: Troponin I Less than 0.010 ng/mL (< 0.028)
[2018-11-24 02:55] LABS: ALT (SGPT) 12 U/L (8-55); AST (SGOT) 21 U/L (5-34); Albumin 3.7 g/dL (3.4-4.8); Alkaline Phosphatase 93 U/L (40-110); Anion Gap 12 mmol/L (10-20); BUN (Urea Nitrogen) 47 mg/dL (9.8-20.1); Bilirubin, Total 0.7 mg/dL (0.2-1.2); Calc. Creatinine Clearance 60 mL/min (70-130); Calcium 10.4 mg/dL (7.8-10.44); Carbon Dioxide 28 mmol/L (23-31); Chloride 105 mmol/L (98-107); Estimated GFR-MDRD 57; Glucose 242 mg/dL (80-115); Potassium 4.2 mmol/L (3.5-5.1); Protein, Total 6.7 g/dL (6.0-8.3); Sodium 141 mmol/L (136-145)
--- NOTE | 2018-11-24 05:36 | PDOC.FM ---
- Subjective Subjective: Dilt drip stopped around 2am due to HR in 60's and hypotension. Pt denies sx at this time. No lightheadedness or dizziness. Does not feel any oropharyngeal drainage from her nose. - Objective Vital Signs & Weight: Vital Signs (12 hours) Temp Pulse Resp BP BP Pulse Ox 11/24/18 04:00 98.9 F 100 16 119/61 92 L 11/23/18 23:40 98.3 F 95 16 139/65 95 Weight Weight 82.191 kg Result Diagrams: 11/24/18 02:05 11/24/18 02:05 Phys Exam - Physical Examination Constitutional: NAD Bilateral nasal packing, no signs of active bleeding no visible blood in oropharynx Neck: full ROM Respiratory: clear to auscultation bilateral Irregularly irregular, normal rate Gastrointestinal: soft, non-tender Musculoskeletal: no edema Neurological: non-focal, moves all 4 limbs Psychiatric: normal affect, A&O x 3 Dx/Plan (1) Atrial fibrillation with RVR Code(s): I48.91 - UNSPECIFIED ATRIAL FIBRILLATION Status: Acute Plan: Controlled RVR (2) Epistaxis Code(s): R04.0 - EPISTAXIS Status: Acute (3) MIRIAM (acute kidney injury) Code(s): N17.9 - ACUTE KIDNEY FAILURE, UNSPECIFIED Status: Acute (4) CHF (congestive heart failure) Code(s): I50.9 - HEART FAILURE, UNSPECIFIED Status: Acute (5) CKD (chronic kidney disease) Code(s): N18.9 - CHRONIC KIDNEY DISEASE, UNSPECIFIED Status: Acute (6) Diabetes Code(s): E11.9 - TYPE 2 DIABETES MELLITUS WITHOUT COMPLICATIONS Status: Acute (7) HLD (hyperlipidemia) Code(s): E78.5 - HYPERLIPIDEMIA, UNSPECIFIED Status: Acute (8) HTN (hypertension) Code(s): I10 - ESSENTIAL (PRIMARY) HYPERTENSION Status: Acute (9) Heart valve replaced Code(s): Z95.2 - PRESENCE OF PROSTHETIC HEART VALVE Status: Acute - Plan Plan: 1. Epistaxis, likely Posterior -Bleeding appears to be well-controlled at this time w/ Afrin-soaked packing -ENT Consult: Pending -Hold home anticoagulation medication regimen 2. A-Fib w/ RVR -Patient currently rate-controlled w/ rates 90-100, dilt drip stopped this morning, will continue to monitor -Hold home anticoagulation regimen -Trops: 0.029, 0.029, <0.01 - suggest demand ischemia 2/2 RVR 3. CHF -s/p Mechanical Aortic Valve replacement -Patient does not appear to be fluid-overloaded -BNP: 104 -Holding lasix currently - will monitor fluid status 4. DM2 -POC Glucose: 158 -Accuchecks ACHS -Mild Sliding Scale Insulin -Continue home medication regimen 5. MIRIAM -Cr: 1.39 -> 1.15 -s/p NS 500 ml bolus -Improving w/ fluids 6. HTN -BP: 139/65 on 11/24 -Continue home medication regimen 7. HLD -Continue home medication regimen Code: Full Diet: Consistent Carbohydrate Activity: Ambulate w/ Assist DVT PPx: SCDs Dispo: Admit to Telemetry Floor for continued cardiac monitoring. Ensure hemodynamic stability and rate control. Await ENT recommendations. Expected LOS < 48H. Addendum - Attending - Attending Attestation Date/Time: 11/24/18 7564 I personally evaluated the patient and discussed the management with Dr. Medina. I agree with the History, Examination, Assessment and Plan documented above with any addition or exceptions noted below. Please see electronic H/P addendum for full attending details for 11/24/2018.
[2018-11-24 07:00] LABS: INR-International Normal Ratio 3.2; PTT 41.6 SEC (22.9-36.1); Prothrombin Time 32.3 SEC (12.0-14.7)
[2018-11-24] MEDS ORDERED: Famotidine 20 MG TAB PO SCH (09:00)
[2018-11-24] MEDS: Potassium [Potassium] 99 MG TAB PO SCH (09:03)
[2018-11-24] MEDS: Spironolactone 25 MG TAB PO SCH (09:04)
[2018-11-24] MEDS: Prenatal Vitamin 1 TAB PO SCH (09:04)
[2018-11-24] MEDS: Acetaminophen 325 MG TAB PO PRN ×2 (09:04→21:08)
[2018-11-24] MEDS: HumaLOG 300 UNITS/3 ML VIAL SC PRN ×2 (09:36→21:23)
[2018-11-24] MEDS: Atorvastatin Calcium 20 MG TAB PO SCH (21:08)
--- NOTE | 2018-11-25 05:59 | PDOC.FM ---
- Subjective Subjective: Pt continues to do well. Denies any feelings of dripping or drainage in the back of her throat, no signs of continued bleeding. Denies lightheadedness/ dizziness, CP, SOB, leg swelling. - Objective Vital Signs & Weight: Vital Signs (12 hours) Temp Pulse Resp BP Pulse Ox 11/25/18 04:22 98.2 F 94 18 127/67 95 11/24/18 23:54 98.8 F 109 H 18 112/60 95 11/24/18 20:00 98.4 F 108 H 20 127/67 97 Weight Weight 84.368 kg I&O: 11/23/18 11/24/18 11/25/18 06:59 06:59 06:59 Intake Total 960 Output Total 400 Balance 560 Result Diagrams: 11/24/18 02:05 11/24/18 02:05 Phys Exam - Physical Examination Constitutional: NAD HEENT: moist MMs, sclera anicteric Bilateral nasal tampons in place, no signs of active bleeding Neck: full ROM Respiratory: no wheezing, no rales, no rhonchi Cardiovascular: RRR Short systolic murmur, soft Gastrointestinal: soft, non-tender Musculoskeletal: no edema, pulses present Neurological: non-focal, normal sensation, moves all 4 limbs Psychiatric: normal affect, A&O x 3 Deviation from normal: Venous stasis changes of LE bilaterally Dx/Plan (1) Atrial fibrillation with RVR Code(s): I48.91 - UNSPECIFIED ATRIAL FIBRILLATION Status: Acute Plan: Controlled RVR (2) Epistaxis Code(s): R04.0 - EPISTAXIS Status: Acute (3) MIRIAM (acute kidney injury) Code(s): N17.9 - ACUTE KIDNEY FAILURE, UNSPECIFIED Status: Acute (4) CHF (congestive heart failure) Code(s): I50.9 - HEART FAILURE, UNSPECIFIED Status: Acute (5) CKD (chronic kidney disease) Code(s): N18.9 - CHRONIC KIDNEY DISEASE, UNSPECIFIED Status: Acute (6) Diabetes Code(s): E11.9 - TYPE 2 DIABETES MELLITUS WITHOUT COMPLICATIONS Status: Acute (7) HLD (hyperlipidemia) Code(s): E78.5 - HYPERLIPIDEMIA, UNSPECIFIED Status: Acute (8) HTN (hypertension) Code(s): I10 - ESSENTIAL (PRIMARY) HYPERTENSION Status: Acute (9) Heart valve replaced Code(s): Z95.2 - PRESENCE OF PROSTHETIC HEART VALVE Status: Acute - Plan Plan: 1. Epistaxis, likely Posterior -Bleeding remains controlled at this time w/ Afrin-soaked packing -ENT Consulted - recommendations are pending -Hold home anticoagulation medication regimen 2. A-Flutter -Patient currently rate-controlled w/ rates 90-100, dilt drip stopped yesterday morning, will continue to monitor -Hold home anticoagulation regimen -Trops: 0.029, 0.029, <0.01 - suggest demand ischemia 2/2 RVR -Early Childhood Services Coordinator is in [place]. Was previously on rate control rx but was stopped 2/ 2 side effects 3. CHF -s/p Mechanical Aortic Valve replacement -Resumed home lasix starting tonight 4. DM2 -Accuchecks ACHS -Mild Sliding Scale Insulin -Continue home medication regimen 5. MIRIAM -Improving w/ fluids 6. HTN -BP: 139/65 on 11/24 -Continue home medication regimen 7. HLD -Continue home medication regimen Code: Full Diet: Consistent Carbohydrate Activity: Ambulate w/ Assist DVT PPx: SCDs Dispo: Admit to Telemetry Floor for continued cardiac monitoring. Ensure hemodynamic stability and rate control. Await ENT recommendations. Expected LOS < 48H. Addendum - Attending - Attending Attestation Date/Time: 11/25/18 1081 I personally evaluated the patient and discussed the management with Dr. Medina. I agree with the History, Examination, Assessment and Plan documented above with any addition or exceptions noted below. Patient doing well. No complaints other than her nasal packing. Her heart rhythm is stable and is awaiting ENT evaluation for her nosebleeding. Further mgmt and dispo pending their evaluation.
[2018-11-25] MEDS ORDERED: Furosemide 80 MG TAB PO SCH ×3 (06:15→21:00)
[2018-11-25] MEDS: Prenatal Vitamin 1 TAB PO SCH (09:30)
[2018-11-25] MEDS: Spironolactone 25 MG TAB PO SCH (09:30)
[2018-11-25] MEDS: Potassium [Potassium] 99 MG TAB PO SCH (09:30)
[2018-11-25 09:31] LABS: #Eosinphils 0.1 thou/uL (0.0-0.7); #Monocytes 0.5 thou/uL (0.11-0.59); #Neutrophils 3.8 thou/uL (1.40-6.50); %Basophils 0.6 % (0.0-1.0); %Eosinophils 1.4 % (0.0-10.0); %Lymphocytes 18.5 % (21.0-51.0); %Monocytes 9.6 % (0.0-10.0); %Neutrophils 69.8 % (42.0-75.0); Hemoglobin 10.2 g/dL (12.0-16.0); Mean Corpuscular HGB CONC 35.5 g/dL (32.0-36.0); Mean Corpuscular Hemoglobin 30.2 pg (27.0-31.0); Mean Platelet Volume 9.4 fL (7.4-10.4); Platelet Count 100 thou/uL (130-400); RBC Distribution Width 15.7 % (11.5-14.5); Red Blood Cell (RBC) Count 3.38 mill/uL (4.20-5.40); White Blood Cell (WBC) Count 5.4 thou/uL (4.8-10.8)
[2018-11-25 09:32] LABS: Anion Gap 13 mmol/L (10-20); BUN (Urea Nitrogen) 38 mg/dL (9.8-20.1); Calc. Creatinine Clearance 51 mL/min (70-130); Calcium 10.8 mg/dL (7.8-10.44); Carbon Dioxide 28 mmol/L (23-31); Chloride 106 mmol/L (98-107); Estimated GFR-MDRD 45; Glucose 163 mg/dL (80-115); Potassium 3.9 mmol/L (3.5-5.1); Sodium 143 mmol/L (136-145)
[2018-11-25] MEDS: HumaLOG 300 UNITS/3 ML VIAL SC PRN ×2 (12:11→21:04)
--- NOTE | 2018-11-25 15:21 | CON ---
DATE OF CONSULTATION: 11/25/2018 CONSULTING PHYSICIAN: Dr. Umaña. REASON FOR CONSULTATION: Epistaxis consultation. HISTORY OF PRESENT ILLNESS: Ms. Edwards is a 68-year-old female, who presented Mariano evening to the emergency room with profuse epistaxis, that she states started on her left side. She states that she was bending over to pick something up and started getting bleeding from the left side of her nose and was unable to stop it with anterior packing and presented to the ER, where they put anterior-posterior pack on both sides and seemed to control the bleeding. She has a long history of being on Coumadin, has been on it for at least 15 years and has a mechanical heart valve and atrial fibrillation, for which she is taking. She also has hypertension, which is well controlled. She has been having intermittent episodes of epistaxis. She had difficult time telling me how often, but it has been a couple of times a month at least and has had 3 episodes, where she presented to the hospital and had packing placed in the nose for a profuse epistaxis in the last several months. The packing seems to have controlled the bleeding and was asked to evaluate her further for this epistaxis. At this point in time, the packing seems to be controlling the bleeding. There has been no active bleeding around the packing and she seems to be tolerating the packing well. She has Rhino Rocket balloon, Rhino Rocket placed on both sides and they are inflated. She is presently off her Coumadin. She denies any other injuries. She denies that her blood pressure has been elevated and has not had any other concerns. She does state that she thinks the episodes of epistaxis began after she had intracranial aneurysm repair done several years ago. PAST MEDICAL HISTORY AND REVIEW OF SYSTEMS: Please see her admission H and P for further details for past medical history and review of systems reviewed on this date. PHYSICAL EXAMINATION: GENERAL: Well-developed, well-nourished female, in no acute distress. HEENT: Head is normocephalic and atraumatic. Eyes; pupils are equal, round, and reactive to light. Extraocular movements are intact. Ears; tympanic membranes are intact, mobile, and clear. Nose shows bilateral Rhino Rocket balloons, which were inflated. No active bleeding was noted around it. Packing appears to be in adequate positioning. Oral cavity, oropharynx shows no blood in the pharynx. Tonsils are absent. No lesions are noted. No exudate or erythema. NECK: With no significant adenopathy or mass. Thyroid is palpably normal. LUNGS: Clear to auscultation. HEART: Irregular rhythm. IMPRESSION AND PLAN: Epistaxis, unclear whether this is anterior or posterior epistaxis, but is presently controlled with the packing in place. I discussed with her leaving the packing in place for 4 days and then taking it out or taking to the OR and unpacking her nose and see if we can find the source of bleeding. After discussion with her, if she has opted to leave the packing in for 4 days and remove it after 4 days and if it does start bleeding again, we will take her to the OR to try and find the bleeder and control it. Would recommend trying to keep her off the anticoagulant as long as possible without causing other complications, 2 weeks would be advisable, but I realize that with her mechanical valve and atrial fibrillation increases the risk of stroke. If possible, minimize the amount of anticoagulation for couple of weeks to try and control this. Can be discharged home to have the packing removed in the office or if other medical necessity requires, keep her in the hospital, remove the packing in the hospital on Monday. Job ID: [id number]
[2018-11-25] MEDS: Atorvastatin Calcium 20 MG TAB PO SCH (20:11)
[2018-11-25] MEDS ORDERED: FLU VACC TS2019-20(65YR UP)/PF 180 MCG/0.5 ML SYRINGE IM ONE (21:00)
[2018-11-26 05:19] LABS: #Basophils 0.1 thou/uL (0.0-0.2); #Eosinphils 0.1 thou/uL (0.0-0.7); #Lymphocytes 1.3 thou/uL (1.20-3.40); #Monocytes 0.6 thou/uL (0.11-0.59); #Neutrophils 3.8 thou/uL (1.40-6.50); %Basophils 0.9 % (0.0-1.0); %Eosinophils 1.5 % (0.0-10.0); %Lymphocytes 21.7 % (21.0-51.0); %Monocytes 10.3 % (0.0-10.0); %Neutrophils 65.6 % (42.0-75.0); Hemoglobin 9.4 g/dL (12.0-16.0); Mean Corpuscular Hemoglobin 30.4 pg (27.0-31.0); Mean Corpuscular Volume 84.6 fL (78.0-98.0); Mean Platelet Volume 9.7 fL (7.4-10.4); Platelet Count 99 thou/uL (130-400); RBC Distribution Width 15.6 % (11.5-14.5); Red Blood Cell (RBC) Count 3.08 mill/uL (4.20-5.40); White Blood Cell (WBC) Count 5.8 thou/uL (4.8-10.8)
[2018-11-26 05:36] LABS: Anion Gap 12 mmol/L (10-20); BUN (Urea Nitrogen) 33 mg/dL (9.8-20.1); Calc. Creatinine Clearance 48 mL/min (70-130); Calcium 10.6 mg/dL (7.8-10.44); Carbon Dioxide 27 mmol/L (23-31); Chloride 103 mmol/L (98-107); Estimated GFR-MDRD 44; Glucose 197 mg/dL (80-115); Potassium 3.7 mmol/L (3.5-5.1); Sodium 138 mmol/L (136-145)
[2018-11-26] MEDS: HumaLOG 300 UNITS/3 ML VIAL SC PRN ×2 (06:09→11:41)
--- NOTE | 2018-11-26 06:37 | PDOC.FM ---
- Subjective Subjective: Feeling well this morning. No overnight events or episodes of bleeding. Denies palpitations, lightheadedness. Reports her Brusher is "Dr Bernal at [facility] in [place]" however there does not appear to be anyone by this name practicing in [place]. - Objective MAR Reviewed: Yes Vital Signs & Weight: Vital Signs (12 hours) Temp Pulse Resp BP Pulse Ox 11/26/18 05:13 98.2 F 100 18 120/58 L 93 L 11/26/18 00:00 98.3 F 82 16 111/58 L 94 L 11/25/18 20:00 98.5 F 100 18 128/62 98 Weight Weight 81.363 kg I&O: 11/24/18 11/25/18 11/26/18 06:59 06:59 06:59 Intake Total 960 960 Output Total 1300 1350 Balance -340 -390 Result Diagrams: 11/26/18 08:04 11/26/18 04:22 Phys Exam - Physical Examination Constitutional: NAD Nasal packings in place, no active bleeding present Neck: supple Respiratory: no wheezing, clear to auscultation bilateral Tachycardic, mechanical heart valve Gastrointestinal: soft, non-tender, positive bowel sounds Musculoskeletal: no edema Neurological: moves all 4 limbs Psychiatric: normal affect, A&O x 3 Skin: no rash Dx/Plan - Plan Plan: Epistaxis, likely Posterior - Bleeding remains controlled with pack - ENT Consulted, recommend removing today, can do it in their office if she is discharged as there are more resources available in outpt clinic. - Holding home Coumadin at this time, discussed with post tensioning ironworker cloth printing utility worker, Dr Petty, recommends pt not being off Coumadin for >7 days after INR is below 2. Scheduled follow up for pt with PCP on Monday at 9am to reinitiate Coumadin. A-Flutter - HR 90's - Trops: 0.029, 0.029, <0.01 - suggest demand ischemia 2/2 RVR - Brusher is in [place]. Was previously on rate control rx but was stopped 2 /2 side effects CHF - Continue home lasix - Appears euvolemic, monitor strict I&Os, daily weights Aortic Valve replacement - manage coumadin as above DM2 - Accuchecks ACHS - Mild SSI, hypoglycemic protocol - CC diet - Continue home meds Normocytic Anemia - 9.4 - Iron studies, Retic and peripheral smear pending MIRIAM - Improving w/ fluids HTN - Continue home meds HLD - Continue home medication regimen Code Status: Full DVT PPx: SCDs Addendum - Attending - Attending Attestation Date/Time: 11/26/18 9068 I personally evaluated the patient and discussed the management with Dr. Valverde I agree with the History, Examination, Assessment and Plan documented above with any addition or exceptions noted below. Patient presented 1 year ago for similar symptoms. ENT has follow up appointment later today in outpatient setting to have packing removed. INR now 1.8. ENT recommends continue to hold Warfarin until packing removed. Will notify patient's cloth printing utility worker of holding warfarin at non therapeutic INR for MV and a fib. Patient to have follow up with PCP later this week to make sure warfarin is restarted and INR at goal. Ok to dc to home. Jane
[2018-11-26 07:36] VITALS: TEMP 98.1
[2018-11-26 08:18] LABS: Reticulocyte Count 1.7 % (0.5-1.5)
[2018-11-26 08:36] LABS: Hemoglobin 9.5 g/dL (12.0-16.0); Mean Corpuscular HGB CONC 35.8 g/dL (32.0-36.0); Mean Corpuscular Hemoglobin 30.4 pg (27.0-31.0); Mean Corpuscular Volume 84.9 fL (78.0-98.0); Mean Platelet Volume 9.3 fL (7.4-10.4); Platelet Count 97 thou/uL (130-400); RBC Distribution Width 15.6 % (11.5-14.5); Red Blood Cell (RBC) Count 3.13 mill/uL (4.20-5.40); White Blood Cell (WBC) Count 5.4 thou/uL (4.8-10.8)
[2018-11-26 08:38] LABS: Iron 67 ug/dL (50-170); Iron Binding Capacity, Total 281 mcg/dL (265-497)
[2018-11-26] MEDS ORDERED: Furosemide 80 MG TAB PO SCH (09:00)
[2018-11-26] MEDS: Prenatal Vitamin 1 TAB PO SCH (09:03)
[2018-11-26] MEDS: Spironolactone 25 MG TAB PO SCH (09:04)
[2018-11-26] MEDS: Potassium [Potassium] 99 MG TAB PO SCH (09:09)
[2018-11-26 09:20] LABS: Band 1 % (5-11); Eosinophils 1 % (0-10); Lymphocytes 15 % (21-51); MDiff Complete? YES; Monocytes 8 % (0-10); Neutrophil 75 % (42-75); Platelet Morphology Comment Appears Decreased; RBC Morphology 1
[2018-11-26 13:26] LABS: INR-International Normal Ratio 1.6; PTT 32.6 SEC (22.9-36.1); Prothrombin Time 19.4 SEC (12.0-14.7)
[2018-11-26 13:27] VITALS: BP 119/62
--- NOTE | 2018-11-26 23:15 | EKG ---
Test Reason : ROUTINE Blood Pressure : / mmHG Vent. Rate : 096 BPM Atrial Rate : 090 BPM P-R Int : 000 ms QRS Dur : 114 ms QT Int : 388 ms P-R-T Axes : 000 -42 088 degrees QTc Int : 490 ms Normal sinus rhythm Left axis deviation Prolonged QT Abnormal ECG When compared with ECG of 23-NOV-2018 19:09, (Unconfirmed) T wave amplitude has decreased in Anterior leads Confirmed by LEXII BOO M.D. ([id number]) on 11/26/2018 11:14:46 PM Referred By: TERRI GILLETTE Confirmed By:LEXII BOO M.D.
--- NOTE | 2018-11-27 21:34 | DIS ---
DATE OF ADMISSION: 11/23/2018 DATE OF DISCHARGE: 11/26/2018 RESIDENT: Dagmar Valverde MD, PGY-2. ADMITTING ATTENDING: Leonardo Umaña MD DISCHARGE ATTENDING: Ute Marrufo MD CONSULTS: Dr. Keys, ENT. PROCEDURES PERFORMED: None. PRIMARY DIAGNOSES: 1. Epistaxis, likely posterior. 2. Atrial flutter, rate controlled. 3. Congestive heart failure. SECONDARY DIAGNOSES: 1. Congestive heart failure. 2. Aortic valve replacement. 3. Type 2 diabetes. 4. Normocytic anemia. 5. Acute kidney injury. 6. Hypertension. 7. Hyperlipidemia. DISCHARGE MEDICATIONS: 1. Vitamin C 500 mg daily. 2. Atorvastatin 20 mg at bedtime. 3. Docusate sodium 100 mg daily. 4. Furosemide 80 mg two tabs in a.m., one tab in the evening. 5. Glipizide 2.5 mg q.a.m. 6. Iron 27 mg daily. 7. Omeprazole 20 mg b.i.d. 8. Potassium 99 mg daily. 9. Senokot 8.6 mg at bedtime p.r.n. 10. Spironolactone 25 mg daily. HISTORY OF PRESENT ILLNESS/HOSPITAL COURSE: Ms. Edwards is a 68-year-old female, who presented to the emergency department with epistaxis. She has had this happened in the past and she is currently taking warfarin for atrial flutter and aortic valve replacement. Reported by the ED provider, she lost approximately 500 mL of blood, anterior source could also be identified. They placed Afrin-soaked gauze, which reduced the rate of flow. Also, received 500 mL normal saline and [place] 5/325. She was started on diltiazem drip at a rate of 5 for the atrial fibrillation flutter with RVR. Hemoglobin of note was 11, INR greater than 30. Her warfarin was held. The patient's rate became controlled and she was taken off the diltiazem drip. Dr. Kaufman recommended removing packs in the ENT office on the day of discharge and holding warfarin for 4 days afterwards. Cardiology was consulted to discuss holding warfarin as patient's railroad auditor is from [place]. They recommended due to it being an aortic valve replacement and the nature of the bleed, not holding warfarin for more than 7 days. If she restarts warfarin Thursday 11/30, this will put her right at 7 days and give her 4 days after pack removal. An appointment was scheduled for patient with her PCP at 9:00 a.m. on Monday to restart this dose. The patient was educated on the risks of holding the warfarin and agreeable to the plan. In regard to her atrial flutter, she was rate controlled. Troponins were negative x3. In regard to her congestive heart failure, the patient was euvolemic and continued on her home dose of Lasix. Diabetes, hypertension, and hyperlipidemia were managed with home medications. The patient did have normocytic anemia of 9.4. Iron studies as well as peripheral smear were obtained. Peripheral smear showed normocytic normochromic anemia, may be caused by multiple etiologies including hemolytic anemia, acute blood loss or chronic disease. Thrombocytopenia may be due to increased consumption, sequestration or decreased production of platelets. Her retic count was 1.7, which was appropriately elevated. INR on the day of discharge was 1.6. Per Cardiology, warfarin should not be held for more than 7 days once INR drip drops below 2. It was 3.2 on 11/24/2018. Her iron studies showed normal iron, TIBC, and ferritin. DISPOSITION: Stable. DISCHARGE INSTRUCTIONS: 1. Location: Home. 2. Diet: Coumadin restricted diet. 3. Activity: No restrictions. 4. Followup: Follow up with Dr. Ash Alegre on 11/30 at 9 a.m. Job ID: [id number]
== END 2018-11-26 15:40 | disposition home or self-care (01) | DRG 151 ==
LOC: ERS 18:51 → 2NO 23:41
PROVIDERS: ADMIT Student in an Organized Health Care Education/Training Program; ATTEND Student in an Organized Health Care Education/Training Program
PROC: 2Y41X5Z Packing of Nasal Region using Packing Material (ICD-10-PCS; principal; 2018-11-23)
PROC: 3E02340 Introduction of Influenza Vaccine into Muscle, Percutaneous Approach (ICD-10-PCS; 2018-11-25)
DX: R04.0 Epistaxis (principal); I48.92 Unspecified atrial flutter; D58.9 Hereditary hemolytic anemia, unspecified; D62 Acute posthemorrhagic anemia; N17.9 Acute kidney failure, unspecified; I13.0 Hypertensive heart and chronic kidney disease with heart failure and stage 1 through stage 4 chronic kidney disease, or unspecified chronic kidney disease; I50.9 Heart failure, unspecified; I48.91 Unspecified atrial fibrillation; E11.22 Type 2 diabetes mellitus with diabetic chronic kidney disease; E78.5 Hyperlipidemia, unspecified; D69.6 Thrombocytopenia, unspecified; N18.9 Chronic kidney disease, unspecified; Z95.2 Presence of prosthetic heart valve; Z79.01 Long term (current) use of anticoagulants; Z79.84 Long term (current) use of oral hypoglycemic drugs; Z23 Encounter for immunization; Z98.51 Tubal ligation status
CPT/HCPCS: 30903; 36415; 36416; 80048; 80053; 82553; 82728; 83540; 83550; 83605; 83880; 84484; 85025; 85046; 85060; 85610; 85730; 86850; 86900; 86901; 90471; 90662; 93005; 93010; 96361; 96365; 96366; G0008

== ENCOUNTER 2019-07-01 01:27 | Inpatient (IN) | payer MEDICARE, OTHER ==
[2019-07-01 02:31] LABS: ALT (SGPT) 18 U/L (8-55); AST (SGOT) 21 U/L (5-34); Albumin 3.7 g/dL (3.4-4.8); Alkaline Phosphatase 81 U/L (40-110); Anion Gap 16 mmol/L (10-20); BUN (Urea Nitrogen) 18 mg/dL (9.8-20.1); Calc. Creatinine Clearance 0 mL/min (70-130); Calcium 9.7 mg/dL (7.8-10.44); Carbon Dioxide 24 mmol/L (23-31); Chloride 102 mmol/L (98-107); Estimated GFR-MDRD 45; Globulin 3.3 g/dL (2.4-3.5); Glucose 149 mg/dL (80-115); Potassium 3.5 mmol/L (3.5-5.1); Sodium 138 mmol/L (136-145)
[2019-07-01] MEDS ORDERED: Cefepime 2 GM VIAL ONE (02:43)
[2019-07-01] MEDS ORDERED: Vancomycin 1 GM/200 ML BAG ONE (02:43)
[2019-07-01 02:51] LABS: Band 7 % (5-11); Hemoglobin 10.4 g/dL (12.0-16.0); Lymphocytes 13 % (21-51); MDiff Complete? YES; Mean Corpuscular HGB CONC 34.5 g/dL (32.0-36.0); Mean Corpuscular Volume 84.2 fL (78.0-98.0); Monocytes 9 % (0-10); Neutrophil 71 % (42-75); Platelet Count 84 thou/uL (130-400); Platelet Morphology Comment Appears Decreased; White Blood Cell (WBC) Count 7.4 thou/uL (4.8-10.8)
[2019-07-01 02:53] LABS: CKMB 2.1 ng/mL (0-6.6)
[2019-07-01 03:48] LABS: Prothrombin Time 42.7 sec (12.0-14.7)
[2019-07-01 03:49] LABS: PTT 64.2 sec (22.9-36.1)
[2019-07-01 04:20] LABS: INR-International Normal Ratio 4.6
[2019-07-01 04:52] LABS: Bacteria/HPF None Seen HPF (None Seen); Bilirubin Negative (Negative); Blood, Urine 2+ (Negative); Clarity Turbid (Clear); Glucose, Urine (Dipstick) Normal (Negative); Leukocyte Negative Leu/uL (Negative); Nitrite Negative (Negative); Protein, Urine (Dipstick) 70 mg/dL (Neg-Trace); RBC/HPF 0-3 HPF (0-3); Squamous Epithelial None Seen HPF (0-3); Urobilinogen 3 mg/dL (Less than 2)
[2019-07-01] MEDS ORDERED: HYDROcodone/Acetaminophen 5/325 mg Tablet PO PRN (05:08)
[2019-07-01] MEDS ORDERED: Ondansetron PF 4 MG/2 ML Vial IVP PRN (05:08)
[2019-07-01] MEDS ORDERED: Dextrose 50% Abboject 50 ML SYRINGE SLOW IVP PRN (05:08)
[2019-07-01] MEDS ORDERED: Dextrose 5% in Water 1,000 ML IV PRN (05:08)
[2019-07-01] MEDS ORDERED: hydrALAZINE 20 MG/ML VIAL SLOW IVP PRN (05:14)
[2019-07-01] MEDS ORDERED: Cefepime 1 GM in Sodium Chloride 0.9% 100 ML IVPB SCH ×2 (06:00→15:00)
[2019-07-01] MEDS ORDERED: Azithromycin 500 MG in Sodium Chloride 0.9% 250 ML 250 ML IVPB SCH (06:00)
[2019-07-01 06:14] LABS: Troponin I 0.038 ng/mL (< 0.028)
[2019-07-01 06:41] VITALS: BMI 30.4
[2019-07-01] MEDS: Furosemide 40 MG/4 ML VIAL SLOW IVP SCH ×2 (06:52→12:47)
[2019-07-01 07:28] LABS: Legionella Urinary Ag Negative (Negative); Strep pneumo Urine Ag NEGATIVE (NEGATIVE)
--- NOTE | 2019-07-01 07:54 | HP ---
SOURCE OF THE HISTORY: From the patient and history is moderately reliable. CHIEF COMPLAINT: "I am having swollen legs for the last two days with pain." HISTORY OF PRESENT ILLNESS: This is a 69-year-old female patient, who had multiple medical problems including essential hypertension, diabetes mellitus leading to diabetic nephropathy, dyslipidemia, stage 2 chronic kidney disease, chronic congestive heart failure, I am not clear if it is systolic or diastolic, chronic atrial fibrillation, history of aortic valve replacement for which patient is on anticoagulation with warfarin, and the patient has been recently diagnosed to be having leukemia. The patient has been compliant with her medications. As per the patient, she has been diagnosed to be having leukemia recently, and the patient had her first cycle of chemotherapy about 3 to 4 weeks ago. The patient has been compliant with her medications including Lasix, but the patient has been having gradually worsening swelling involving the feet and distal legs for the last two days associated with pain during ambulation. Otherwise, the patient has been having low-grade fever since yesterday without any cough, chest pain, abdominal, or urinary symptoms. No recent history of travel. Subsequently, the patient had evaluation in the Emergency Department and on the route to the Emergency Department, patient was noted to be having temperature of 101.5 degrees Fahrenheit, and upon arrival to the Emergency Department, patient had temperature of 99.9. Subsequently, workup has revealed possible infiltrate involving the left lower lobe of the lung for which patient has been admitted to internal medicine service. PAST MEDICAL HISTORY: 1. Hypertension. 2. Diabetes mellitus. 3. Dyslipidemia. 4. Diabetic nephropathy. 5. Stage 2 chronic kidney disease. 6. Congestive heart failure. 7. Chronic atrial fibrillation. 8. Aortic valve replacement. 9. Recently diagnosed leukemia. PAST SURGICAL HISTORY: 1. Aortic valve replacement. 2. Surgery involving the neck, left wrist repair. 3. Tubal ligation. ALLERGIES: THE PATIENT IS ALLERGIC TO NO MEDICATIONS. CURRENT MEDICATIONS: At home, 1. Glipizide 2.5 mg two tablets orally once a day. 2. Warfarin 5 mg orally once a day. 3. Spironolactone 25 mg orally once a day. 4. Lasix 80 mg orally two tablets in the morning and one tablet at bedtime. 5. Omeprazole 20 mg orally once a day. 6. Atorvastatin 20 mg orally once a day. 7. Iron 50 mg orally once a day. 8. Vitamin C 500 mg orally once a day. 9. Potassium 99 mg orally once a day. 10. Revlimid 10 mg orally once a day. 11. Dexamethasone 4 mg orally with unknown dosage. SOCIAL HISTORY: Lives alone. Ambulates without any assistance. Otherwise, the patient has no history of tobacco abuse, alcohol abuse, or recreational drug abuse. FAMILY HISTORY: Significant for hypertension and diabetes mellitus in her family. REVIEW OF SYSTEMS: As mentioned in the history of present illness. Apart from that, 14-point review of systems have been conducted and not contributory. PHYSICAL EXAMINATION: GENERAL: Elderly female patient lying on the stretcher comfortably, not appears to be in any cardiopulmonary distress. Mucous membranes are pale and moist. Acyanotic, anicteric. No finger clubbing, but the patient has bilateral pedal edema with no lymphadenopathy. VITAL SIGNS: In the Emergency Department, temperature 99.9, pulse 106, respirations 36, and blood pressure 130/84. HEAD: Atraumatic, normocephalic. ENT: Neck is supple. No jugular venous distention. No thyromegaly or carotid bruit. EYES: Extraocular movements are intact. Pupils are equal and reactive to light bilaterally. Accommodation reflex present. CHEST: Bilaterally symmetrical. Trachea is in midline. Air entry is slightly diminished at both bases, but otherwise the patient has mild inspiratory rhonchi at left base, but no wheezing. CARDIOVASCULAR: Normal intensity of S1, S2 without S3. No murmurs appreciated. Irregularly irregular rhythm, and the patient had metallic click all over the precordium. ABDOMEN: Soft without any distention. Nontender. No organomegaly. Bowel sounds normoactive. SLOT TAG INSERTER: The patient is alert, awake, oriented to time, place, and person. No focal motor or sensory deficits. EXTREMITIES: The patient has 2+ pitting edema involving the distal legs and both feet. SKIN: No rash or petechiae. LABORATORY DATA: WBC 7.4, hemoglobin 10.4, hematocrit 30.3, and platelets 84. PT 42.7, INR 4.6, PTT 64.2, D-dimer 3.34. Sodium 138, potassium 3.4, chloride 102, bicarb 24, anion gap 16, BUN 18, creatinine 1.4, glucose 149, and lactic acid 1.1. Calcium 9.7, total bilirubin 2.0, AST 21, ALT 18, alkaline phosphatase was 81, and CK-MB 2.1. Troponin 0.036. BNP 131, total protein 7.0, albumin 3.7, and globulin 3.3. Urinalysis reveal negative nitrites and leukocyte esterase. ASSESSMENT: 1. Fever in immunocompromised patient. 2. Possible pneumonia involving the left lower lobe of the lung. 3. Recently diagnosed leukemia with status post chemotherapy four weeks ago. 4. Chronic anemia and thrombocytopenia, probably related to leukemia. 5. Coumadin toxicity with supratherapeutic INR. 6. Stage 3 chronic kidney disease. 7. Status post aortic valve replacement. 8. Chronic atrial fibrillation with controlled ventricular rate. 9. History of essential hypertension with controlled blood pressure. 10. Diabetes mellitus leading to diabetic nephropathy. 11. Dyslipidemia. 12. Acute on chronic congestive heart failure, not clear if systolic or diastolic. PLAN: 1. The patient has been brought to the Emergency Department because of 2-day history of worsening leg swelling associated with fever. On the route to the Emergency Department, patient had fever and currently the source of infection appears to be infiltrating on the left lower lobe of the lung, but otherwise the patient has no evidence of sepsis on admission. Urinalysis is clean. Await two sets of blood cultures. 2. Check urine Legionella and streptococcal antigen. Keep the patient on intravenous vancomycin, cefepime, and Zithromax empirically as currently the patient is immunocompromised because of leukemia and recent chemotherapy. 3. The patient has acute on chronic congestive heart failure with worsening bilateral lower extremities pedal edema, but BNP is not remarkable. Keep the patient on fluid restriction to 1.4 L per day. Lasix 40 mg intravenously twice a day. 4. Hold warfarin because of a supratherapeutic INR and resume warfarin once INR is less than 3.5. 5. Resume all home medications. 6. Keep the patient on medium dose of lispro insulin sliding scale coverage. Job ID: [id number]
[2019-07-01] MEDS: Famotidine 20 MG TAB PO SCH ×2 (08:46→21:52)
[2019-07-01 08:56] LABS: Troponin I 0.028 ng/mL (< 0.028)
--- NOTE | 2019-07-01 09:41 | ULT ---
PRELIMINARY REPORT/DIRECT RADIOLOGY/EMERGENCY AFTER HOURS PROCEDURE EXAM: US Duplex bilateral Lower Extremity Veins. CLINICAL HISTORY: HX: BLE PAIN, SWELLING TECHNIQUE: Real-time ultrasound scan of the veins of the bilateral lower extremity with color Doppler flow, spectral waveform analysis and compression. COMPARISON: None provided. FINDINGS: DEEP VEINS: The common femoral, femoral, and popliteal veins are echolucent and compressible. These v essels demonstrate respiratory variation and augmentation. There is normal color Doppler flow through out. The visualized calf veins are also patent. SUPERFICIAL VEINS: The visualized greater saphenous vein is patent. Dilated superficial vessels in th e right leg compatible with varicose veins. IMPRESSION: No deep venous thrombosis in the bilateral lower extremities. ELECTRONICALLY SIGNED BY: Carolyn Leslie MD July 01, 2019 4:41:25 AM CDT FINAL REPORT BILATERAL LOWER EXTREMITY VENOUS DUPLEX ULTRASOUND INCLUDING COLOR AND SPECTRAL DOPPLER IMAGING: HISTORY: Bilateral lower extremity pain, swelling, and edema. Exam performed from groin to ankle including visualized greater saphenous, common femoral, superficia l femoral, profunda femoral, popliteal, trifurcation, and posterior tibial vein regions. There was p hasic flow and normal compressibility and augmentation. There were some minimally dilated superficia l veins, evidence for some superficial varices. No evidence of deep venous thrombosis. This report is in agreement with the preliminary report.
[2019-07-01 10:36] LABS: SARS-CoV-2 MS2 Positive; SARS-CoV-2 N Gene Negative; SARS-CoV-2 S Gene Negative; SARS-CoV-2 orf1ab Negative
--- NOTE | 2019-07-01 10:46 | RAD ---
CHEST 1 VIEW PORTABLE: HISTORY: Leg pain and swelling, fever. History of congestive heart failure, COPD, and diabetes. FINDINGS: There is cardiomegaly. Poor inspiration. Postop midline sternotomy. Bilateral vascular congestion with some increased markings slightly more prominent in the bases, possibly some subsegmental atelect asis and/or mild pneumonitis. IMPRESSION: Cardiomegaly with bilateral vascular congestion and some increased markings in the bases. Correlate clinically. Continue short-term followup to include PA and lateral chest whenever the patient can un dergo that. POS: [facility]
[2019-07-01] MEDS ORDERED: Docusate 100 MG CAP PO PRN (12:39)
[2019-07-01] MEDS ORDERED: Senokot 8.6 MG TAB PO PRN (12:39)
[2019-07-01] MEDS ORDERED: Ascorbic Acid 500 mg Chewable Tablet PO SCH (12:45)
[2019-07-01] MEDS: HumaLOG 300 UNITS/3 ML VIAL SC PRN ×2 (14:52→17:25)
--- NOTE | 2019-07-01 17:48 | RAD ---
LEFT TIBIA/FIBULA: History: Pain, swelling Comparison: None FINDINGS: There is moderate superficial soft tissue swelling. The tibia and fibula appear to be intact. Moderat e ankle swelling. IMPRESSION: Extensive soft tissue swelling. This could be due to venous insufficiency, edema, or cellulitis. POS: HOME
--- NOTE | 2019-07-01 17:49 | RAD ---
LEFT FEMUR TWO VIEWS: History: Pain, swelling Comparison: None FINDINGS: Moderate vascular calcifications. No acute displaced fracture or malalignment. Moderate chondrocalcin osis. Moderate superficial soft tissue swelling. IMPRESSION: Chronic findings. No acute fracture or malalignment. POS: HOME
[2019-07-01] MEDS: Mometasone 200 MCG/Formoterol 5 MCG 120 PUFF INHALER INH SCH (18:49)
[2019-07-01] MEDS: Atorvastatin Calcium 20 MG TAB PO SCH (21:52)
[2019-07-02] MEDS ORDERED: Vancomycin HCl 1.25 GM in Sodium Chloride 0.9% 250 ML 250 ML IVPB SCH (03:00)
[2019-07-02 04:43] LABS: Prothrombin Time 47.6 sec (12.0-14.7)
[2019-07-02 04:47] LABS: INR-International Normal Ratio 5.2
[2019-07-02 04:54] LABS: Anion Gap 12 mmol/L (10-20); BUN (Urea Nitrogen) 18 mg/dL (9.8-20.1); Calc. Creatinine Clearance 59 mL/min (70-130); Calcium 9.7 mg/dL (7.8-10.44); Carbon Dioxide 28 mmol/L (23-31); Chloride 101 mmol/L (98-107); Estimated GFR-MDRD 54; Glucose 71 mg/dL (80-115); Potassium 3.2 mmol/L (3.5-5.1); Sodium 138 mmol/L (136-145)
[2019-07-02 05:20] LABS: Band 5 % (5-11); Eosinophils 6 % (0-10); Hemoglobin 10.3 g/dL (12.0-16.0); Lymphocytes 9 % (21-51); MDiff Complete? YES; Mean Corpuscular HGB CONC 35.1 g/dL (32.0-36.0); Mean Corpuscular Hemoglobin 29.5 pg (27.0-31.0); Mean Corpuscular Volume 83.9 fL (78.0-98.0); Monocytes 13 % (0-10); Neutrophil 67 % (42-75); Platelet Count 100 thou/uL (130-400); Platelet Morphology Comment Appears Decreased; RBC Distribution Width 16.1 % (11.5-14.5); White Blood Cell (WBC) Count 6.4 thou/uL (4.8-10.8)
[2019-07-02] MEDS: Furosemide 40 MG/4 ML VIAL SLOW IVP SCH ×2 (06:09→16:00)
[2019-07-02] MEDS: Mometasone 200 MCG/Formoterol 5 MCG 120 PUFF INHALER INH SCH ×2 (07:14→18:17)
[2019-07-02] MEDS ORDERED: Ferrous Sulfate 325 MG TAB PO SCH (08:45)
[2019-07-02] MEDS: Ascorbic Acid 500 mg Chewable Tablet PO SCH (08:50)
--- NOTE | 2019-07-02 08:52 | PDOC.EVN ---
Event Note - Event Note Event Note: Late entry note 06/30 patient reported left leg swelling more than right. She reports history of varicose veins and wears compression stockings at home. Vitals: stable On exam: Patient noted to have pain when palpating left leg and mild swelling .Extensive varicose veins noted. Abd: soft, nontender, nondistended Lungs: CTAB CV: RRR, no murmurs, rubs, gallops A/P Varicose veins LLE edema > right - check Xray tib/fib - US negative for DVT - check ECHO #Supratherapeutic INR #S/p aortic valve replacement - INr 4.6, hold coumadin Heart failure - chest X ray with cardiomegaly and bilateral effusions - COVID negative. Check ECHO - discontinue antibiotics with no fever or WBC
[2019-07-02] MEDS: Famotidine 20 MG TAB PO SCH ×2 (08:53→20:47)
[2019-07-02] MEDS ORDERED: Phytonadione 10 MG/ML AMP PO SCH (09:15)
[2019-07-02] MEDS ORDERED: Potassium Chloride 20 MEQ TAB PO SCH (11:30)
--- NOTE | 2019-07-02 15:21 | RAD ---
LEFT FOOT THREE VIEWS: 07/02/19 HISTORY: Left foot pain. Difficulty bearing weight. The bones are very demineralized. There are arthritic changes of the first metatarsophalangeal joint. Calcaneal spurs are present. Arthritic changes of the mid foot region. Loss of the normal AP dimensi on of the lateral side of the navicular. There may be bony ankylosis in this region. I do not see any acute process. IMPRESSION: Arthritic changes of the foot, particularly pronounced changes in the midfoot region involving the na vicular. These changes particularly involve the distal articulation of the navicular with the cuneifo radha. POS: [facility]
--- NOTE | 2019-07-02 16:08 | PDOC.HOSPP ---
- Subjective Encounter Date: 07/02/19 Encounter Time: 16:07 Subjective: The patient still reports difficulty walking and and bearing weight on left foot. No chest pain, SOB, or abd pain - Objective Vital Signs & Weight: Vital Signs (12 hours) Temp Pulse Resp BP Pulse Ox 07/02/19 15:58 99.3 F 96 20 131/68 97 07/02/19 12:00 99.7 F H 98 20 152/79 H 93 L 07/02/19 07:21 98.0 F 93 19 130/76 92 L 07/02/19 07:14 107 H 16 95 Weight Weight 188 lb 9.6 oz I&O: 07/01/19 07/02/19 07/03/19 06:59 06:59 06:59 Intake Total 720 Balance 720 Result Diagrams: 07/02/19 03:58 07/02/19 03:58 Additional Labs: Accuchecks 07/02/19 07/02/19 07/01/19 10:52 05:37 16:40 POC Glucose 169 H 71 177 H Hospitalist ROS - Review of Systems Constitutional: denies: fever, chills - Medication Medications: Active Medications Generic Name Dose Route Start Last Admin Trade Name Freq PRN Reason Stop Dose Admin Ascorbic Acid 500 mg 07/02/19 09:00 07/02/19 08:50 Vitamin C PO 500 mg DAILY ARACELI Administration Atorvastatin Calcium 20 mg 07/01/19 21:00 07/01/19 21:52 Lipitor PO 20 mg HS ARACELI Administration Famotidine 20 mg 07/01/19 09:00 07/02/19 08:53 Pepcid PO Not Given BID ARACELI Furosemide 40 mg 07/01/19 06:00 07/02/19 16:00 Lasix SLOW IVP 40 mg 0600,1400 ARACELI Administration Insulin Human Lispro 0 units 07/01/19 05:08 07/01/19 17:25 Humalog SC 2 unit .MODERATE SLIDING SC PRN Administration Moderate Correctional Scale Mometasone Furoate/Formoterol Fumar 2 puff 07/01/19 18:30 07/02/19 07:14 Dulera 200 Mcg/5 Mcg Inhaler INH 1 puff BID-RT ARACELI Administration Pantoprazole Sodium 40 mg 07/02/19 09:00 07/02/19 08:53 Protonix PO 40 mg DAILY ARACELI Administration Sodium Chloride 10 ml 07/01/19 09:00 07/02/19 08:53 Flush - Normal Saline IVF 10 ml Q12HR ARACELI Administration Sodium Chloride 10 ml 07/01/19 06:54 07/01/19 08:46 Flush - Normal Saline IVF 10 ml PRN PRN Administration Saline Flush - Exam General Appearance: NAD, awake alert Eye: PERRL, anicteric sclera ENT: normocephalic atraumatic, no oropharyngeal lesions Neck: supple, no JVD Heart: RRR, no murmur, no gallops, no rubs Heart - other findings: 2+ dorsal pedis pulses Respiratory: CTAB, no wheezes, no rales, no ronchi Gastrointestinal: soft, non-tender, non-distended, normal bowel sounds Extremities: no cyanosis, no clubbing Extremities - other findings: 2+ edema on the left ankle. Tenderness on mid- forefoot Skin: normal turgor, no lesions, no rashes Skin - other findings: venous stasis extremities Neurological: cranial nerve grossly intact, normal sensation to touch, no focal deficits, no new deficit Musculoskeletal: normal tone, normal strength, no muscle wasting Hosp A/P - Plan This is a 69 year old female who presented to the hospital with worsening leg swelling Varicose veins LLE edema > right Foot pain - Xray tib/fib showd no acute process - US negative for DVT - foot Xray showed arthritis changes. No acute process - check ECHO. Continue lasix - appreciate PT #Supratherapeutic INR #S/p aortic valve replacement - INR up to 5.2, - administer 2.5 mg vitamin K today Heart failure - chest X ray with cardiomegaly and bilateral effusions - COVID negative. Check ECHO - discontinue antibiotics with no fever or WBC Acute kidney injury - continue lasix 40 mg IV bid. Creatinine improving to 1.16 - UA negative
[2019-07-02] MEDS: Acetaminophen 325 MG TAB PO PRN (18:25)
[2019-07-02] MEDS: cefTRIAXone\\ROCEPHIN 1 GM in Sodium Chloride 0.9% 100 ML IVPB SCH (20:46)
[2019-07-02] MEDS: Atorvastatin Calcium 20 MG TAB PO SCH (20:47)
[2019-07-03 05:01] LABS: Mean Corpuscular HGB CONC 33.5 g/dL (32.0-36.0); Mean Corpuscular Hemoglobin 28.4 pg (27.0-31.0); Mean Corpuscular Volume 84.8 fL (78.0-98.0); Mean Platelet Volume 10.9 fL (7.4-10.4); Platelet Count 121 thou/uL (130-400); RBC Distribution Width 16.1 % (11.5-14.5); White Blood Cell (WBC) Count 6.8 thou/uL (4.8-10.8)
[2019-07-03 05:17] LABS: Anion Gap 15 mmol/L (10-20); BUN (Urea Nitrogen) 18 mg/dL (9.8-20.1); Calc. Creatinine Clearance 56 mL/min (70-130); Calcium 9.7 mg/dL (7.8-10.44); Carbon Dioxide 24 mmol/L (23-31); Chloride 102 mmol/L (98-107); Estimated GFR-MDRD 51; Glucose 138 mg/dL (80-115); Potassium 3.8 mmol/L (3.5-5.1); Sodium 137 mmol/L (136-145)
[2019-07-03] MEDS: Furosemide 40 MG/4 ML VIAL SLOW IVP SCH (05:53)
[2019-07-03] MEDS: Mometasone 200 MCG/Formoterol 5 MCG 120 PUFF INHALER INH SCH ×2 (06:36→18:05)
[2019-07-03] MEDS: Famotidine 20 MG TAB PO SCH ×2 (08:49→19:49)
[2019-07-03] MEDS: Ferrous Sulfate 325 MG TAB PO SCH (08:49)
[2019-07-03] MEDS: Acetaminophen 325 MG TAB PO PRN ×3 (08:49→23:29)
[2019-07-03] MEDS: Ascorbic Acid 500 mg Chewable Tablet PO SCH (08:49)
[2019-07-03] MEDS: Sodium Chloride 0.9% 1,000 ML IV SCH ×2 (10:57→23:14)
[2019-07-03] MEDS: HumaLOG 300 UNITS/3 ML VIAL SC PRN ×2 (11:35→17:23)
--- NOTE | 2019-07-03 15:25 | RAD ---
EXAM: CHEST ONE VIEW: 07/03/19 HISTORY: Evaluate pleural effusion. COMPARISON: 07/01/19. FINDINGS: Very severe poor inspiratory effort. Marked cardiomegaly. Blunting of both costophrenic angles, evide nce for some bilateral pleural effusions. Bilateral vascular congestion. Horizontal linear and parenc hymal changes in the lung bases evidence for probable partial atelectasis. IMPRESSION: Cardiomegaly. Very poor inspiratory effort with evidence for bilateral pleural effusions and bibasila r linear parenchymal changes. Stable nodularity over the right hilar region. Consider follow-up chest CT scan for further assessment. POS: RRE
--- NOTE | 2019-07-03 18:44 | PDOC.HOSPP ---
- Subjective Encounter Date: 07/03/19 Encounter Time: 18:43 Subjective: The patient still reports 7/10 in the left mid foot. She states she can move it and lift her leg up but hurts to walk on it. She says her pain is relieved with drinking water She has mild SOB - Objective Vital Signs & Weight: Vital Signs (12 hours) Temp Pulse Pulse Pulse Resp BP BP 07/03/19 18:05 101 H 18 07/03/19 15:46 98.5 F 96 16 07/03/19 11:05 100.1 F H 98 22 H 07/03/19 08:54 122 H 112 H 126/63 131/65 07/03/19 08:50 07/03/19 07:25 101.2 F H 103 H 28 H BP Pulse Ox 07/03/19 18:05 93 L 07/03/19 15:46 132/71 91 L 07/03/19 11:05 119/66 96 07/03/19 08:54 07/03/19 08:50 92 L 07/03/19 07:25 145/64 H 92 L Weight Weight 188 lb 9.6 oz I&O: 07/02/19 07/03/19 07/04/19 06:59 06:59 06:59 Intake Total 720 900 Balance 720 900 Result Diagrams: 07/03/19 04:44 07/03/19 04:44 Additional Labs: Accuchecks 07/03/19 07/03/19 07/03/19 16:33 11:01 05:46 POC Glucose 173 H 201 H 141 H 07/02/19 20:36 POC Glucose 161 H Hospitalist ROS - Review of Systems Constitutional: reports: fever. denies: chills - Medication Medications: Active Medications Generic Name Dose Route Start Last Admin Trade Name Freq PRN Reason Stop Dose Admin Acetaminophen 650 mg 07/01/19 05:08 07/03/19 13:13 Tylenol PO 650 mg Q4H PRN Administration Headache/Fever/Mild Pain (1-3) Ascorbic Acid 500 mg 07/02/19 09:00 07/03/19 08:49 Vitamin C PO 500 mg DAILY ARACELI Administration Atorvastatin Calcium 20 mg 07/01/19 21:00 07/02/19 20:47 Lipitor PO 20 mg HS ARACELI Administration Famotidine 20 mg 07/01/19 09:00 07/03/19 08:49 Pepcid PO 20 mg BID ARACELI Administration Ferrous Sulfate 325 mg 07/03/19 08:00 07/03/19 08:49 Feosol PO 325 mg QAM-WM ARACELI Administration Ceftriaxone Sodium 1 gm/ 100 mls @ 0 mls/hr 07/02/19 20:00 07/02/19 20:46 Sodium Chloride IVPB 100 mls 2000 ARACELI Administration Sodium Chloride 1,000 mls @ 70 mls/hr 07/03/19 10:30 07/03/19 10:57 Normal Saline 0.9% IV 1,000 mls .[id number] ARACELI Administration Insulin Human Lispro 0 units 07/01/19 05:08 07/03/19 17:23 Humalog SC 2 unit .MODERATE SLIDING SC PRN Administration Moderate Correctional Scale Mometasone Furoate/Formoterol Fumar 2 puff 07/01/19 18:30 07/03/19 18:05 Dulera 200 Mcg/5 Mcg Inhaler INH 2 puff BID-RT ARACELI Administration Pantoprazole Sodium 40 mg 07/02/19 09:00 07/03/19 08:49 Protonix PO 40 mg DAILY ARACELI Administration Sodium Chloride 10 ml 07/01/19 09:00 07/03/19 08:49 Flush - Normal Saline IVF 10 ml Q12HR ARACELI Administration Sodium Chloride 10 ml 07/01/19 06:54 07/01/19 08:46 Flush - Normal Saline IVF 10 ml PRN PRN Administration Saline Flush - Exam General Appearance: NAD, awake alert Eye: PERRL, anicteric sclera ENT: normocephalic atraumatic, no oropharyngeal lesions Neck: supple, no JVD Heart: RRR, no murmur, no gallops, no rubs Respiratory: CTAB, no wheezes, no rales, no ronchi Gastrointestinal: soft, non-tender, non-distended, normal bowel sounds Extremities: no cyanosis Extremities - other findings: tenderness left mid foot. Swelling over left ankle. No toe swelling Skin: normal turgor, no lesions, no rashes Neurological: cranial nerve grossly intact, normal sensation to touch, no focal deficits, no new deficit Hosp A/P - Plan ECHO: EF 55-60%, severe dilated LA, mechanical mitral prosthetic valve, severe TR This is a 69 year old female who presented to the hospital with worsening leg swelling Sepsis possibly from cellulitis - patient with fever, tachycardia - started IV fluids - blood cultures, urineculture, chest X ray re-sent. No evidence of infection - COVID negative. Was on IV antibiotics on admission for pneumonia, discontinued since no pulmonary symptoms, restarted ceftriaxone 07/01. Consider MRI of foot #LLE edema > right - possibly gouty arthritis vs cellulitis? Foot pain Varicose veins - Xray tib/fib showd no acute process. US negative for DVT - foot Xray showed arthritis changes. No acute process. ECHO shows normal EF - will hold off further lasix. Uric acid was checked and was elevated . Will start colchicine 1.2 mg po x 1, then 0.6 mg one hour later, than bid colchicine - continue ceftriaxone for possible cellulitis. 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 Further records need to be obtained #Supratherapeutic INR #S/p aortic valve replacement - INR up to 5.2, administer 2.5 mg vitamin K 07/01. Repeat INR today Heart failure - chest X ray with cardiomegaly and bilateral effusions. Received IV lasix, hold further - COVID negative. CKD - creatinine 1.26, seems to be at baseline Code status: full code
[2019-07-03] MEDS: Colchicine 0.6 MG TAB PO SCH (19:01)
[2019-07-03 19:24] LABS: INR-International Normal Ratio 1.6; Prothrombin Time 18.5 sec (12.0-14.7)
[2019-07-03] MEDS ORDERED: Colchicine 0.6 MG TAB PO SCH (19:45)
[2019-07-03] MEDS: Atorvastatin Calcium 20 MG TAB PO SCH (19:49)
[2019-07-03] MEDS: cefTRIAXone\\ROCEPHIN 1 GM in Sodium Chloride 0.9% 100 ML IVPB SCH (19:50)
--- NOTE | 2019-07-03 21:26 | CON ---
DATE OF CONSULTATION: 07/03/2019 REASON FOR CONSULTATION: Fever. HISTORY OF PRESENT ILLNESS: A 69-year-old with history of type 2 diabetes, nephropathy, hypertension, and aortic valve replacement done in [place] on chronic Coumadin and a recent diagnosis of some form of myeloproliferative disorder by the regimen that she is receiving, which include Revlimid and Decadron. It is likely that this is a multiple myeloma, although it could be myelodysplastic syndrome. Reviewing her CBC as noted below, it is more likely to be multiple myeloma. She over the past few days has noticed worsening edema in lower extremities, lost the ability to walk, felt ill, and had a fever on Monday. No headaches. No visual symptoms, sore throat, odynophagia, or dysphagia. She has pain in the neck area right side, which started recently. She denies any cough. No chest pain. She denies any abdominal pain. No diarrhea. No genitourinary symptoms. She lost ability to ambulate because of swelling in the legs and weakness. PAST MEDICAL HISTORY: Cardiomyopathy probably ischemic, type 2 diabetes, hyperlipidemia, hypertension, aortic valve disorder, which led to aortic valve replacement in [place] on chronic Coumadin, hypertension. She has some form of neck surgery and she has a history of gout as well, tubal ligation. SOCIAL HISTORY: Never smoker. Lives in [place] with family. ALLERGIES: NONE. CURRENT MEDICATIONS: 1. Agency. 2. Vitamin C. 3. Lipitor. 4. Ceftriaxone. 5. Colace. 6. Pepcid. 7. Feosol. 8. Insulin. 9. Dulera. 10. Zofran. 11. Pantoprazole. MEDICATIONS: At home she takes; 1. Revlimid. 2. Decadron. FAMILY HISTORY: Noncontributory. PHYSICAL EXAMINATION: VITAL SIGNS: Temperature max 102 and now she is 98.5, blood pressure 130/70, pulse 96, respirations 16, and O2 saturation 91% to 96% on room air. GENERAL: She is a little bit diaphoretic. SKIN: Did not show any abnormalities. She has a peripheral IV access. She is voiding in the bedside commode and she has no lymphadenopathy. HEENT: Ocular movements are conjugate. Sclerae white. Pupils are equal. Conjunctivae normal. Oral cavity with no bill moore's slough teeth remaining. She has quite a bit of tenderness in the neck area, particularly on the right side, but also posterior aspect towards the right. LUNGS: With diminished breath sounds at the bases. Question of inspiratory crackles on the right side. HEART: S1 and S2 without obvious click of the artificial aortic valve. ABDOMEN: Somewhat distended. No ascites. No organomegaly. No bladder distention. EXTREMITIES: No joint inflammatory activity noted except for the first MPJ to the left foot. Pulses are 1+ in popliteal and dorsalis pedis. She has 2+ edema in lower extremities. She moves extremities equally, but she is diffusely weak. NEUROLOGIC: She is awake, follows commands. Recollection is pretty good, not the best, but reasonable. Speech appears to be normal. She knew where she was and the date. LABORATORY DATA: The sodium 138, creatinine 1.41 and now is down to 1.26, and bilirubin 2.0. Transaminases and alkaline phosphatase normal. BNP 131. Albumin 3.7 and globulin 7.0. Urinalysis 7 to 10 wbc's. COVID-19 not detected. Legionella pneumoniae and Strep pneumoniae negative. Chest x-ray with cardiomegaly, poor inspiratory effort with evidence of bilateral pleural effusions. Bibasilar linear parenchymal changes, nodularity over right hilar region. ASSESSMENT: Likely multiple myeloma on Revlimid and Decadron, fever, worsening edema in lower extremities, and prostatic aortic valve. DISCUSSION: Differential diagnosis includes pneumonia, which has an increased frequency in patients with multiple myeloma, versus bacteremia with possible association with prosthetic valve. In view of the neck pain a localized inflammatory process in the neck region is considered possible as well. No evidence of an intraabdominal inflammatory process. She does have history of gout and gout can be associated with fever, so that is another possibility in the differential diagnosis. Uric acid was done and it was elevated at 8.2, so that definitely is a possibility of polyarticular gout. We will obtain a CT of chest without contrast to look at the lung parenchyma. Thromboembolism appears to be less likely since the patient is on warfarin and properly anticoagulated so that pretty much ruled out. May have to image her neck down the road. Job ID: [id number] [facility]
--- NOTE | 2019-07-03 22:19 | CT ---
CT OF CHEST PERFORMED WITHOUT CONTRAST ENHANCEMENT: 07/03/19 HISTORY: Patient with a history of myeloma and fever. Heart size is enlarged. No mediastinal adenopathy is appreciated. Thoracic aorta is normal in caliber . The inferior vena cava is markedly dilated. There are bibasilar lung changes in the more posterior basal segments with air bronchograms. This co uld be atelectasis but somewhat more suggestive of pneumonia. No evidence of any significant effusion . There is some ascites incidentally noted. Bones are diffusely demineralized. Loss of vertebral body height of multiple vertebral bodies is note d. Changes could be related to patient's myeloma. There is no discrete lytic lesions identified. IMPRESSION: 1. Bibasilar infiltrative appearing lung changes. 2. Cardiomegaly with markedly dilated inferior vena cava consistent with right heart failure. 3. Minimal ascites. POS: RUTH
[2019-07-03 22:22] LABS: Bacteria/HPF 4+ HPF (None Seen); Bilirubin Negative (Negative); Blood, Urine 1+ (Negative); Clarity Turbid (Clear); Glucose, Urine (Dipstick) Normal (Negative); Leukocyte 75 Leu/uL (Negative); Nitrite Negative (Negative); Protein, Urine (Dipstick) 50 mg/dL (Neg-Trace); Squamous Epithelial 0-3 HPF (0-3)
[2019-07-03 22:23] LABS: Urine Culture Reflex Yes Yes
[2019-07-04] MEDS: Mometasone 200 MCG/Formoterol 5 MCG 120 PUFF INHALER INH SCH ×2 (06:52→18:11)
[2019-07-04] MEDS: Ascorbic Acid 500 mg Chewable Tablet PO SCH (08:26)
[2019-07-04] MEDS: Ferrous Sulfate 325 MG TAB PO SCH (08:26)
[2019-07-04] MEDS: Famotidine 20 MG TAB PO SCH ×2 (08:26→20:17)
[2019-07-04 09:17] LABS: Hemoglobin 10.6 g/dL (12.0-16.0); Mean Corpuscular HGB CONC 33.6 g/dL (32.0-36.0); Mean Corpuscular Hemoglobin 28.6 pg (27.0-31.0); Mean Corpuscular Volume 85.2 fL (78.0-98.0); Mean Platelet Volume 9.9 fL (7.4-10.4); Platelet Count 128 thou/uL (130-400); RBC Distribution Width 16.2 % (11.5-14.5); Red Blood Cell (RBC) Count 3.71 mill/uL (4.20-5.40); White Blood Cell (WBC) Count 6.9 thou/uL (4.8-10.8)
[2019-07-04 09:22] LABS: INR-International Normal Ratio 1.5; Prothrombin Time 18.1 sec (12.0-14.7)
[2019-07-04 09:42] LABS: Anion Gap 15 mmol/L (10-20); BUN (Urea Nitrogen) 19 mg/dL (9.8-20.1); Calc. Creatinine Clearance 54 mL/min (70-130); Carbon Dioxide 25 mmol/L (23-31); Chloride 101 mmol/L (98-107); Estimated GFR-MDRD 49; Glucose 136 mg/dL (80-115); Potassium 3.5 mmol/L (3.5-5.1); Sodium 137 mmol/L (136-145); Uric Acid 7.7 mg/dL (2.6-6.0)
[2019-07-04] MEDS: HumaLOG 300 UNITS/3 ML VIAL SC PRN (11:22)
[2019-07-04] MEDS: Sodium Chloride 0.9% 1,000 ML IV SCH (13:57)
[2019-07-04] MEDS: Colchicine 0.6 MG TAB PO SCH (17:18)
[2019-07-04] MEDS: Acetaminophen 325 MG TAB PO PRN (17:18)
--- NOTE | 2019-07-04 18:23 | PDOC.HOSPP ---
- Subjective Encounter Date: 07/04/19 Encounter Time: 10:00 Subjective: The patient thinks that her foot pain is slightly better. She has mild SOB, no cough or chest pain. Per PT, she was not able to walk very far due to pain - Objective Vital Signs & Weight: Vital Signs (12 hours) Temp Pulse Pulse Resp BP BP Pulse Ox 07/04/19 18:11 97 16 92 L 07/04/19 15:22 98.5 F 85 18 162/82 H 92 L 07/04/19 15:18 113 H 176/82 H 07/04/19 11:15 97.7 F 97 18 124/65 94 L 07/04/19 07:07 98 F 94 18 122/67 92 L 07/04/19 06:52 98 16 93 L Weight Weight 188 lb 9.6 oz I&O: 07/03/19 07/04/19 07/05/19 06:59 06:59 06:59 Intake Total 900 Balance 900 Result Diagrams: 07/04/19 08:52 07/04/19 08:52 Additional Labs: Accuchecks 07/04/19 07/04/19 07/04/19 16:54 11:11 05:42 POC Glucose 186 H 217 H 133 H Hospitalist ROS - Review of Systems Constitutional: denies: fever, chills - Medication Medications: Active Medications Generic Name Dose Route Start Last Admin Trade Name Freq PRN Reason Stop Dose Admin Acetaminophen 650 mg 07/01/19 05:08 07/04/19 17:18 Tylenol PO 650 mg Q4H PRN Administration Headache/Fever/Mild Pain (1-3) Ascorbic Acid 500 mg 07/02/19 09:00 07/04/19 08:26 Vitamin C PO 500 mg DAILY ARACELI Administration Atorvastatin Calcium 20 mg 07/01/19 21:00 07/03/19 19:49 Lipitor PO 20 mg HS ARACELI Administration Colchicine 0.6 mg 07/04/19 16:07 07/04/19 17:19 Colchicine PO 0.6 mg BID ARACELI Administration Famotidine 20 mg 07/01/19 09:00 07/04/19 08:26 Pepcid PO 20 mg BID ARACELI Administration Ferrous Sulfate 325 mg 07/03/19 08:00 07/04/19 08:26 Feosol PO 325 mg QAM-WM ARACELI Administration Insulin Human Lispro 0 units 07/01/19 05:08 07/04/19 11:22 Humalog SC 4 unit .MODERATE SLIDING SC PRN Administration Moderate Correctional Scale Mometasone Furoate/Formoterol Fumar 2 puff 07/01/19 18:30 07/04/19 18:11 Dulera 200 Mcg/5 Mcg Inhaler INH 2 puff BID-RT ARACELI Administration Sodium Chloride 10 ml 07/01/19 09:00 07/04/19 08:26 Flush - Normal Saline IVF 10 ml Q12HR ARACELI Administration Sodium Chloride 10 ml 07/01/19 06:54 07/01/19 08:46 Flush - Normal Saline IVF 10 ml PRN PRN Administration Saline Flush - Exam General Appearance: NAD, awake alert Eye: PERRL, anicteric sclera ENT: normocephalic atraumatic, no oropharyngeal lesions Neck: no JVD Heart: RRR, no murmur, no gallops, no rubs Respiratory: CTAB, no wheezes, no rales, no ronchi Gastrointestinal: soft, non-tender, non-distended, normal bowel sounds Extremities: no cyanosis, 2+ LE edema Extremities - other findings: less swelling of ankle noted, improved tenderness. Skin: normal turgor, no lesions, no rashes Neurological: cranial nerve grossly intact, normal sensation to touch, no focal deficits, no new deficit Musculoskeletal: normal tone, normal strength, no muscle wasting Psychiatric: A&O x 3 Hosp A/P - Plan ECHO: EF 55-60%, severe dilated LA, mechanical mitral prosthetic valve, severe TR CT chest: This is a 69 year old female who presented to the hospital with worsening leg swelling Sepsis possibly from cellulitis vs pneumonia - patient with fever, tachycardia - started IV fluids - blood cultures, urine culture, chest X ray re-sent and negative. CT chest shows questionable pneumonia - COVID negative. Was on IV antibiotics on admission for pneumonia, discontinued since no pulmonary symptoms, restarted ceftriaxone 07/01. Add azithromycin 07/03 #LLE edema > right - possibly gouty arthritis vs cellulitis? Foot pain Varicose veins - Xray tib/fib showd no acute process. US negative for DVT - foot Xray showed arthritis changes. No acute process. ECHO shows normal EF - uric acid was 8. Started colchicine 07/02 with improvement in uric acid to 7.7. Will continue and recheck tomorrow/. - continue ceftriaxone Hypomagnesemia - Mg 1.5, will replace with 2 grams Right sided Heart failure - chest X ray with cardiomegaly and bilateral effusions. Received IV lasix, held due to MIRIAM. CT chest showing dilated IVC - give one dose of IV lasix 20 mg tonight #Supratherapeutic INR- resolved #S/p aortic valve replacement - INR 1.5 today, resume coumadin 5 mg. Was 5.2 on 07/01 CKD - creatinine 1.26, seems to be at baseline DIspo: case management consult for rehab Code status: full code
[2019-07-04] MEDS ORDERED: Magnesium Sulfate 2 GM in Sodium Chloride 0.9% 100 ML IVPB SCH (18:30)
[2019-07-04] MEDS ORDERED: Magnesium 2 GM/50 ML 2 GM in Premix Bag 1 BAG IVPB SCH (20:00)
[2019-07-04] MEDS ORDERED: Potassium Chloride 20 MEQ TAB PO SCH (20:00)
[2019-07-04] MEDS: Amoxicillin/Potassium Clav 875 MG TAB PO SCH (20:15)
[2019-07-04] MEDS: Atorvastatin Calcium 20 MG TAB PO SCH (20:16)
[2019-07-04] MEDS ORDERED: Furosemide 20 MG/2 ML VIAL SLOW IVP SCH (21:00)
[2019-07-05 04:43] LABS: Anion Gap 12 mmol/L (10-20); BUN (Urea Nitrogen) 21 mg/dL (9.8-20.1); Calc. Creatinine Clearance 55 mL/min (70-130); Calcium 10.2 mg/dL (7.8-10.44); Carbon Dioxide 26 mmol/L (23-31); Chloride 104 mmol/L (98-107); Estimated GFR-MDRD 50; Glucose 126 mg/dL (80-115); Magnesium 1.9 mg/dL (1.6-2.6); Potassium 4.1 mmol/L (3.5-5.1); Sodium 138 mmol/L (136-145); Uric Acid 7.7 mg/dL (2.6-6.0)
[2019-07-05] MEDS: Mometasone 200 MCG/Formoterol 5 MCG 120 PUFF INHALER INH SCH ×2 (07:15→18:42)
[2019-07-05] MEDS: Amoxicillin/Potassium Clav 875 MG TAB PO SCH ×2 (09:15→21:49)
[2019-07-05] MEDS: Ascorbic Acid 500 mg Chewable Tablet PO SCH (09:15)
[2019-07-05] MEDS: Ferrous Sulfate 325 MG TAB PO SCH (09:15)
[2019-07-05] MEDS: Famotidine 20 MG TAB PO SCH ×2 (09:15→21:49)
[2019-07-05] MEDS: Colchicine 0.6 MG TAB PO SCH ×2 (09:26→21:50)
[2019-07-05 11:54] LABS: INR-International Normal Ratio 1.5; Prothrombin Time 17.7 sec (12.0-14.7)
[2019-07-05] MEDS: HumaLOG 300 UNITS/3 ML VIAL SC PRN ×2 (12:32→17:39)
[2019-07-05] MEDS ORDERED: Furosemide 20 MG/2 ML VIAL SLOW IVP SCH (13:00)
--- NOTE | 2019-07-05 15:04 | PDOC.HOSPP ---
- Subjective Encounter Date: 07/05/19 Encounter Time: 10:00 Subjective: The patient feels her foot pain is slightly improved but still hurts some. She walked yesterday and thought to still need rehab. Spoke to patient's cousin per patient request. She is agreeable to rehab for the patient, wants her to go to [place] for rehab. Patient's sister is taking care of her grand-children there and patient's oncologist is in [place] Pt lives in [place]. Pt reports she feels she got worst after taking prednisone weekly given by her chemo doctor and it was making her legs more swollen. Cousin states patient was evaluated at [facility] and thought to need tricuspid valve replacement but they couldn't find a valve size big enough for her - Objective Vital Signs & Weight: Vital Signs (12 hours) Temp Pulse Resp BP BP Pulse Ox 07/05/19 11:55 16 96 07/05/19 11:48 98.3 F 86 26 H 144/73 H 98 07/05/19 09:15 95 07/05/19 09:10 98.2 F 87 16 137/72 95 07/05/19 04:05 99.1 F 99 18 130/61 92 L Weight Weight 188 lb 9.6 oz I&O: 07/04/19 07/05/19 07/06/19 06:59 06:59 06:59 Intake Total 900 600 Output Total 600 Balance 900 0 Result Diagrams: 07/04/19 08:52 07/05/19 04:00 Additional Labs: Accuchecks 07/05/19 07/05/19 07/04/19 10:59 06:27 20:39 POC Glucose 194 H 141 H 152 H 07/04/19 16:54 POC Glucose 186 H Hospitalist ROS - Review of Systems Constitutional: denies: fever, chills - Medication Medications: Active Medications Generic Name Dose Route Start Last Admin Trade Name Freq PRN Reason Stop Dose Admin Acetaminophen 650 mg 07/01/19 05:08 07/04/19 17:18 Tylenol PO 650 mg Q4H PRN Administration Headache/Fever/Mild Pain (1-3) Hydrocodone Bitart/Acetaminophen 1 tab 07/01/19 05:08 07/05/19 12:32 [place] 5/325 PO 1 tab Q4H PRN Administration Moderate Pain (4-6) Amoxicillin/Clavulanate Potassium 875 mg 07/04/19 21:00 07/05/19 09:15 Augmentin PO 875 mg Q12HR ARACELI Administration Ascorbic Acid 500 mg 07/02/19 09:00 07/05/19 09:15 Vitamin C PO 500 mg DAILY ARACELI Administration Atorvastatin Calcium 20 mg 07/01/19 21:00 07/04/19 20:16 Lipitor PO 20 mg HS ARACELI Administration Colchicine 0.6 mg 07/05/19 09:00 07/05/19 09:26 Colchicine PO 0.6 mg BID ARACELI Administration Docusate Sodium 100 mg 07/01/19 12:39 07/05/19 12:31 Colace PO 100 mg DAILYPRN PRN Administration Constipation Famotidine 20 mg 07/01/19 09:00 07/05/19 09:15 Pepcid PO 20 mg BID ARACELI Administration Ferrous Sulfate 325 mg 07/03/19 08:00 07/05/19 09:15 Feosol PO 325 mg QAM-WM ARACELI Administration Insulin Human Lispro 0 units 07/01/19 05:08 07/05/19 12:32 Humalog SC 2 unit .MODERATE SLIDING SC PRN Administration Moderate Correctional Scale Mometasone Furoate/Formoterol Fumar 2 puff 07/01/19 18:30 07/05/19 07:15 Dulera 200 Mcg/5 Mcg Inhaler INH 2 puff BID-RT ARACELI Administration Sodium Chloride 10 ml 07/01/19 09:00 07/05/19 09:15 Flush - Normal Saline IVF 10 ml Q12HR ARACELI Administration Sodium Chloride 10 ml 07/01/19 06:54 07/01/19 08:46 Flush - Normal Saline IVF 10 ml PRN PRN Administration Saline Flush - Exam General Appearance: NAD, awake alert Eye: PERRL, anicteric sclera ENT: normocephalic atraumatic, no oropharyngeal lesions Neck: no JVD Heart: RRR, no murmur, no gallops, no rubs Respiratory: CTAB, no wheezes, no rales, no ronchi Gastrointestinal: soft, non-tender, non-distended, normal bowel sounds Extremities: no cyanosis, no clubbing Extremities - other findings: left ankle swelling bilaterally. Tenderness on left midfoot. Less tender Skin: normal turgor, no lesions, no rashes Neurological: cranial nerve grossly intact, normal sensation to touch, no focal deficits, no new deficit Hosp A/P - Plan ECHO: EF 55-60%, severe dilated LA, mechanical mitral prosthetic valve, severe TR CT chest: This is a 69 year old female who presented to the hospital with worsening leg swelling Sepsis possibly from cellulitis vs pneumonia - patient with fever, tachycardia - blood cultures, urine culture, chest X ray re-sent and negative x 2. CT chest shows questionable pneumonia - COVID negative. Was on IV antibiotics on admission for pneumonia, discontinued since no pulmonary symptoms, restarted ceftriaxone 07/01 due to fevers. Switched to augmentin 07/03 . Currently afebrile, continue #LLE edema > right - possibly gouty arthritis vs cellulitis? Foot pain Varicose veins - Xray tib/fib showd no acute process. US negative for DVT - foot Xray showed arthritis changes. No acute process. ECHO shows normal EF - uric acid was 8. Started colchicine 07/02 with improvement in uric acid to 7.7. Continue colchicine, consider starting allopurinol closer to dc - PT evaluated patient and felt patient needs rehab Hypomagnesemia -resolved Right sided Heart failure secondary to severe tricuspid regurgitation - chest X ray with cardiomegaly and bilateral effusions. Received IV lasix, held due to MIRIAM. CT chest showing dilated IVC, resumed IV lasix 20 mg 07/03 -07/04: continue 20 mg IV lasix #Supratherapeutic INR- resolved #S/p aortic valve replacement - INR 1.5 today, resume coumadin 5 mg. Was 5.2 on 07/01 CKD - creatinine 1.28, seems to be at baseline DIspo: case management consult for rehab Code status: full code
[2019-07-05] MEDS ORDERED: Warfarin Sodium 5 MG TAB PO SCH (17:00)
--- NOTE | 2019-07-05 19:22 | PRG ---
DATE OF SERVICE: 07/05/2019 SUBJECTIVE: The patient is feeling a little better. No headaches. No chest pain. No abdominal pain. OBJECTIVE: VITAL SIGNS: Temperature seems to have settled down over the past 2 days. Other vital signs are unremarkable. GENERAL: Appears chronically ill, but in no acute distress. LUNGS: With scattered crackles at the bases. Diminished breath sounds on the right side. HEART: S1 and S2, regular rate. ABDOMEN: Soft, not distended. No bladder distention and voiding in the diaper. EXTREMITIES: Moves extremities equally. 1+ edema in lower extremities. NEUROLOGIC: Awake and oriented. LABORATORY DATA: White cell count 6.9, hemoglobin 10.6, platelets 128. Creatinine 1.28, calcium 10.2. Microbiology with negative cultures. IMAGING: previously discussed chest CT findings. ASSESSMENT AND DISCUSSION: Multiple myeloma, on Revlimid and Decadron, fever, worsening edema in lower extremities, prosthetic aortic valve and lung findings consistent with pneumonia. The patient seems to be responding and the neck is not hurting as much as before and she is currently on broad-spectrum coverage with amoxicillin given orally. Job ID: [id number] [facility]
[2019-07-05] MEDS: Atorvastatin Calcium 20 MG TAB PO SCH (21:50)
[2019-07-06 05:09] LABS: Hemoglobin 9.9 g/dL (12.0-16.0); Mean Corpuscular HGB CONC 34.9 g/dL (32.0-36.0); Mean Corpuscular Hemoglobin 29.5 pg (27.0-31.0); Mean Corpuscular Volume 84.6 fL (78.0-98.0); Mean Platelet Volume 8.8 fL (7.4-10.4); Platelet Count 195 thou/uL (130-400); Red Blood Cell (RBC) Count 3.35 mill/uL (4.20-5.40); White Blood Cell (WBC) Count 6.3 thou/uL (4.8-10.8)
[2019-07-06 05:23] LABS: Anion Gap 14 mmol/L (10-20); BUN (Urea Nitrogen) 22 mg/dL (9.8-20.1); Calc. Creatinine Clearance 60 mL/min (70-130); Calcium 10.7 mg/dL (7.8-10.44); Carbon Dioxide 24 mmol/L (23-31); Chloride 101 mmol/L (98-107); Estimated GFR-MDRD 55; Glucose 193 mg/dL (80-115); Potassium 4.5 mmol/L (3.5-5.1); Sodium 134 mmol/L (136-145)
[2019-07-06] MEDS: HumaLOG 300 UNITS/3 ML VIAL SC PRN ×3 (06:13→17:35)
[2019-07-06] MEDS: Mometasone 200 MCG/Formoterol 5 MCG 120 PUFF INHALER INH SCH ×3 (06:50→19:02)
[2019-07-06] MEDS: Famotidine 20 MG TAB PO SCH ×2 (09:27→20:27)
[2019-07-06] MEDS: Amoxicillin/Potassium Clav 875 MG TAB PO SCH ×2 (09:27→20:27)
[2019-07-06] MEDS: Colchicine 0.6 MG TAB PO SCH ×2 (09:27→20:27)
[2019-07-06] MEDS: Ascorbic Acid 500 mg Chewable Tablet PO SCH (09:27)
[2019-07-06] MEDS: Ferrous Sulfate 325 MG TAB PO SCH (09:27)
[2019-07-06] MEDS ORDERED: Senokot 8.6 MG TAB PO PRN (09:49)
[2019-07-06] MEDS ORDERED: Docusate 100 MG CAP PO PRN (09:49)
[2019-07-06] MEDS ORDERED: Furosemide 80 MG TAB PO SCH (10:00)
[2019-07-06 10:42] LABS: INR-International Normal Ratio 1.6; Prothrombin Time 18.7 sec (12.0-14.7)
[2019-07-06] MEDS: Warfarin Sodium 5 MG TAB PO SCH (17:19)
--- NOTE | 2019-07-06 17:52 | PDOC.HOSPP ---
- Subjective Encounter Date: 07/06/19 Encounter Time: 11:14 Subjective: assumed care of this pt today. pt has no complains. - Objective Vital Signs & Weight: Vital Signs (12 hours) Temp Pulse Pulse Pulse Resp BP BP 07/06/19 16:00 98.4 F 98 07/06/19 15:45 99 84 141/69 H 145/73 H 07/06/19 13:09 98.4 F 95 20 07/06/19 08:00 99.1 F 102 H 25 H BP Pulse Ox 07/06/19 16:00 144/78 H 93 L 07/06/19 15:45 07/06/19 13:09 151/71 H 97 07/06/19 08:00 134/73 92 L Weight Weight 193 lb 3.2 oz I&O: 07/05/19 07/06/19 07/07/19 06:59 06:59 06:59 Intake Total 600 1010 Output Total 600 620 Balance 0 390 Result Diagrams: 07/06/19 04:45 07/06/19 04:45 Additional Labs: Accuchecks 07/06/19 07/06/19 07/06/19 16:58 11:08 05:56 POC Glucose 212 H 169 H 225 H 07/05/19 20:32 POC Glucose 231 H Hospitalist ROS - Review of Systems Cardiovascular: denies: chest pain, palpitations, orthopnea, paroxysmal noc. dyspnea, edema, light headedness, other Gastrointestinal: denies: nausea, vomiting, abdominal pain, diarrhea, constipation, melena, hematochezia, other Genitourinary: denies: dysuria, frequency, incontinence, hematuria, retention, other Musculoskeletal: denies: neck pain, shoulder pain, arm pain, back pain, hand pain, leg pain, foot pain, other - Medication Medications: Active Medications Generic Name Dose Route Start Last Admin Trade Name Freq PRN Reason Stop Dose Admin Acetaminophen 650 mg 07/01/19 05:08 07/04/19 17:18 Tylenol PO 650 mg Q4H PRN Administration Headache/Fever/Mild Pain (1-3) Hydrocodone Bitart/Acetaminophen 1 tab 07/01/19 05:08 07/05/19 12:32 [place] 5/325 PO 1 tab Q4H PRN Administration Moderate Pain (4-6) Amoxicillin/Clavulanate Potassium 875 mg 07/04/19 21:00 07/06/19 09:27 Augmentin PO 875 mg Q12HR ARACELI Administration Ascorbic Acid 500 mg 07/02/19 09:00 07/06/19 09:27 Vitamin C PO 500 mg DAILY ARACELI Administration Colchicine 0.6 mg 07/05/19 09:00 07/06/19 09:27 Colchicine PO 0.6 mg BID ARACELI Administration Famotidine 20 mg 07/01/19 09:00 07/06/19 09:27 Pepcid PO 20 mg BID ARACELI Administration Insulin Human Lispro 0 units 07/01/19 05:08 07/06/19 17:35 Humalog SC 4 unit .MODERATE SLIDING SC PRN Administration Moderate Correctional Scale Mometasone Furoate/Formoterol Fumar 2 puff 07/01/19 18:30 07/06/19 06:50 Dulera 200 Mcg/5 Mcg Inhaler INH 2 puff BID-RT ARACELI Administration Sodium Chloride 10 ml 07/01/19 09:00 07/06/19 09:27 Flush - Normal Saline IVF 10 ml Q12HR ARACELI Administration Sodium Chloride 10 ml 07/01/19 06:54 07/05/19 21:51 Flush - Normal Saline IVF 10 ml PRN PRN Administration Saline Flush Warfarin Sodium 10 mg 07/06/19 17:00 07/06/19 17:19 Coumadin PO 10 mg 1700 ARACELI Administration - Exam Neck: negative: supple, symmetric, no JVD, no thyromegaly, no lymphadenopathy, no carotid bruit, JVD Heart: negative: RRR, no murmur, no gallops, no rubs, normal peripheral pulses, irregular, diminshed peripheral pulses, murmur present, II/IV, III/IV Respiratory: negative: CTAB, no wheezes, no rales, no ronchi, normal chest expansion, no tachypnea, normal percussion, rales, rhonchi, tachypneic, wheezes Hosp A/P - Plan Hosp A/P - Plan ECHO: EF 55-60%, severe dilated LA, mechanical mitral prosthetic valve, severe TR CT chest: This is a 69 year old female who presented to the hospital with worsening leg swelling Sepsis possibly from cellulitis vs pneumonia - patient with fever, tachycardia - blood cultures, urine culture, chest X ray re-sent and negative x 2. CT chest shows questionable pneumonia - COVID negative. Was on IV antibiotics on admission for pneumonia, discontinued since no pulmonary symptoms, restarted ceftriaxone 07/01 due to fevers. Switched to augmentin 07/03 . Currently afebrile, continue #LLE edema > right - possibly gouty arthritis vs cellulitis? Foot pain Varicose veins - Xray tib/fib showd no acute process. US negative for DVT - foot Xray showed arthritis changes. No acute process. ECHO shows normal EF - uric acid was 8. Started colchicine 07/02 with improvement in uric acid to 7.7. Continue colchicine, consider starting allopurinol closer to dc - PT evaluated patient and felt patient needs rehab Hypomagnesemia -resolved Right sided Heart failure secondary to severe tricuspid regurgitation - chest X ray with cardiomegaly and bilateral effusions. Received IV lasix, held due to MIRIAM. CT chest showing dilated IVC, resumed IV lasix 20 mg 07/03 -07/04: continue 20 mg IV lasix mitral valve mechanical valve: sub therapeutic will give lovenox x1 now and increase coumadin to 10mg. CKD - creatinine 1.28, seems to be at baseline DIspo: case management consult for rehab Code status: full code
[2019-07-06] MEDS ORDERED: Enoxaparin Sodium 100 MG/ML SYRINGE SC SCH (18:15)
[2019-07-06] MEDS: Atorvastatin Calcium 20 MG TAB PO SCH (20:28)
[2019-07-07 04:27] LABS: Hemoglobin 9.8 g/dL (12.0-16.0); Platelet Count 196 thou/uL (130-400)
[2019-07-07 04:29] LABS: INR-International Normal Ratio 1.8; Prothrombin Time 20.8 sec (12.0-14.7)
[2019-07-07 04:42] LABS: Anion Gap 13 mmol/L (10-20); BUN (Urea Nitrogen) 19 mg/dL (9.8-20.1); Calc. Creatinine Clearance 64 mL/min (70-130); Calcium 11.1 mg/dL (7.8-10.44); Carbon Dioxide 24 mmol/L (23-31); Chloride 104 mmol/L (98-107); Estimated GFR-MDRD 57; Glucose 142 mg/dL (80-115); Magnesium 1.6 mg/dL (1.6-2.6); Potassium 4.1 mmol/L (3.5-5.1); Sodium 137 mmol/L (136-145)
[2019-07-07] MEDS: HumaLOG 300 UNITS/3 ML VIAL SC PRN ×3 (06:10→17:27)
[2019-07-07] MEDS: Mometasone 200 MCG/Formoterol 5 MCG 120 PUFF INHALER INH SCH ×4 (07:17→18:26)
[2019-07-07] MEDS ORDERED: ADMIXTURE FEE IVPB SCH (09:00)
[2019-07-07] MEDS ORDERED: SODIUM CHLORIDE IVPB SCH (09:00)
[2019-07-07] MEDS ORDERED: ZOLEDRONIC ACID IVPB SCH (09:00)
[2019-07-07] MEDS ORDERED: Sodium Chloride 0.9% 500 ML IV SCH (09:00)
[2019-07-07] MEDS: Spironolactone 25 MG TAB PO SCH (09:46)
[2019-07-07] MEDS: Colchicine 0.6 MG TAB PO SCH ×2 (09:46→20:31)
[2019-07-07] MEDS: Amoxicillin/Potassium Clav 875 MG TAB PO SCH ×2 (09:46→20:31)
[2019-07-07] MEDS: Ascorbic Acid 500 mg Chewable Tablet PO SCH (09:46)
[2019-07-07] MEDS: Enoxaparin Sodium 100 MG/ML SYRINGE SC SCH ×2 (09:46→20:31)
[2019-07-07] MEDS: Ferrous Sulfate 325 MG TAB PO SCH (09:47)
[2019-07-07] MEDS: Furosemide 80 MG TAB PO SCH (09:47)
[2019-07-07] MEDS: Famotidine 20 MG TAB PO SCH ×2 (09:47→20:31)
[2019-07-07 11:06] LABS: ALT (SGPT) 17 U/L (8-55); AST (SGOT) 19 U/L (5-34); Albumin 3.2 g/dL (3.4-4.8); Alkaline Phosphatase 101 U/L (40-110); Bilirubin, Direct 0.6 mg/dL (0.1-0.3); Bilirubin, Total 0.8 mg/dL (0.2-1.2); Protein, Total 6.9 g/dL (6.0-8.3)
--- NOTE | 2019-07-07 12:47 | PDOC.HOSPP ---
- Subjective Encounter Date: 07/07/19 Encounter Time: 11:15 Subjective: pt up in chair no complains - Objective Vital Signs & Weight: Vital Signs (12 hours) Temp Pulse Resp BP BP Pulse Ox 07/07/19 12:27 98.7 F 87 16 126/69 95 07/07/19 07:30 98.4 F 85 18 134/70 94 L 07/07/19 03:30 98.8 F 90 18 138/73 93 L Weight Weight 191 lb 4.8 oz I&O: 07/06/19 07/07/19 07/08/19 06:59 06:59 06:59 Intake Total 1010 920 Output Total 620 100 Balance 390 820 Result Diagrams: 07/07/19 03:49 07/07/19 03:49 Additional Labs: Accuchecks 07/07/19 07/07/19 07/06/19 11:54 05:49 20:47 POC Glucose 223 H 160 H 154 H 07/06/19 07/06/19 16:58 11:08 POC Glucose 212 H 169 H Hospitalist ROS - Review of Systems Respiratory: denies: cough, dry, shortness of breath, hemoptysis, SOB with excertion, pleuritic pain, sputum, wheezing, other Cardiovascular: denies: chest pain, palpitations, orthopnea, paroxysmal noc. dyspnea, edema, light headedness, other Gastrointestinal: denies: nausea, vomiting, abdominal pain, diarrhea, constipation, melena, hematochezia, other - Medication Medications: Active Medications Generic Name Dose Route Start Last Admin Trade Name Freq PRN Reason Stop Dose Admin Acetaminophen 650 mg 07/01/19 05:08 07/04/19 17:18 Tylenol PO 650 mg Q4H PRN Administration Headache/Fever/Mild Pain (1-3) Hydrocodone Bitart/Acetaminophen 1 tab 07/01/19 05:08 07/05/19 12:32 Niland 5/325 PO 1 tab Q4H PRN Administration Moderate Pain (4-6) Amoxicillin/Clavulanate Potassium 875 mg 07/04/19 21:00 07/07/19 09:46 Augmentin PO 875 mg Q12HR ARACELI Administration Ascorbic Acid 500 mg 07/02/19 09:00 07/07/19 09:46 Vitamin C PO 500 mg DAILY ARACELI Administration Atorvastatin Calcium 20 mg 07/06/19 21:00 07/06/19 20:28 Lipitor PO 20 mg HS ARACELI Administration Colchicine 0.6 mg 07/05/19 09:00 07/07/19 09:46 Colchicine PO 0.6 mg BID ARACELI Administration Enoxaparin Sodium 90 mg 07/07/19 09:00 07/07/19 09:46 Lovenox SC 90 mg 0900,2100 ARACELI Administration Famotidine 20 mg 07/01/19 09:00 07/07/19 09:47 Pepcid PO 20 mg BID ARACELI Administration Ferrous Sulfate 325 mg 07/07/19 09:00 07/07/19 09:47 Feosol PO 325 mg DAILY ARACELI Administration Furosemide 160 mg 07/07/19 09:00 07/07/19 09:47 Lasix PO 160 mg QAM ARACELI Administration Glipizide 5 mg 07/07/19 08:00 07/07/19 09:46 Glucotrol Xl PO 5 mg QAM-WM ARACELI Administration Insulin Human Lispro 0 units 07/01/19 05:08 07/07/19 12:42 Humalog SC 4 unit .MODERATE SLIDING SC PRN Administration Moderate Correctional Scale Mometasone Furoate/Formoterol Fumar 2 puff 07/01/19 18:30 07/07/19 07:17 Dulera 200 Mcg/5 Mcg Inhaler INH 2 puff BID-RT ARACELI Administration Mometasone Furoate/Formoterol Fumar 2 puff 07/06/19 18:30 07/07/19 07:17 Dulera 200 Mcg/5 Mcg Inhaler INH Not Given BID-RT ARACELI Pantoprazole Sodium 40 mg 07/07/19 09:00 07/07/19 09:47 Protonix PO 40 mg BID ARACELI Administration Sodium Chloride 10 ml 07/01/19 09:00 07/07/19 09:48 Flush - Normal Saline IVF 10 ml Q12HR ARACELI Administration Sodium Chloride 10 ml 07/01/19 06:54 07/06/19 20:27 Flush - Normal Saline IVF 10 ml PRN PRN Administration Saline Flush Spironolactone 25 mg 07/07/19 09:00 07/07/19 09:46 Aldactone PO 25 mg DAILY ARACELI Administration Warfarin Sodium 10 mg 07/06/19 17:00 07/06/19 17:19 Coumadin PO 10 mg 1700 ARACELI Administration - Exam Heart: negative: RRR, no murmur, no gallops, no rubs, normal peripheral pulses, irregular, diminshed peripheral pulses, murmur present, II/IV, III/IV Respiratory: negative: CTAB, no wheezes, no rales, no ronchi, normal chest expansion, no tachypnea, normal percussion, rales, rhonchi, tachypneic, wheezes Gastrointestinal: negative: soft, non-tender, non-distended, normal bowel sounds , no palpable masses, no hepatomegaly, no splenomegaly, no bruit, no guarding, no rigidity, tender to palpation, distended, diminished bowl sounds, voluntary guarding Hosp A/P - Plan Hosp A/P - Plan ECHO: EF 55-60%, severe dilated LA, mechanical mitral prosthetic valve, severe TR CT chest: This is a 69 year old female who presented to the hospital with worsening leg swelling Sepsis possibly from cellulitis vs pneumonia - patient with fever, tachycardia - blood cultures, urine culture, chest X ray re-sent and negative x 2. CT chest shows questionable pneumonia - COVID negative. Was on IV antibiotics on admission for pneumonia, discontinued since no pulmonary symptoms, restarted ceftriaxone 07/01 due to fevers. Switched to augmentin 07/03 . Currently afebrile, continue #LLE edema > right - possibly gouty arthritis vs cellulitis? Foot pain Varicose veins - Xray tib/fib showd no acute process. US negative for DVT - foot Xray showed arthritis changes. No acute process. ECHO shows normal EF - uric acid was 8. Started colchicine 07/02 with improvement in uric acid to 7.7. Continue colchicine, consider starting allopurinol closer to dc - PT evaluated patient and felt patient needs rehab Hypomagnesemia -resolved Right sided Heart failure secondary to severe tricuspid regurgitation - chest X ray with cardiomegaly and bilateral effusions. Received IV lasix, held due to MIRIAM. CT chest showing dilated IVC, resumed IV lasix 20 mg 07/03 -07/04: continue 20 mg IV lasix mitral valve mechanical valve: sub therapeutic will give lovenox x1 now and increase coumadin to 10mg. pt's inr has to be between 2.5-3.5 hypercalcemia: corrected for her albumin she still has significant hypercalemia. will start her zometa and give a bit of fluids. 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
[2019-07-07] MEDS: Warfarin Sodium 5 MG TAB PO SCH (17:28)
[2019-07-07] MEDS: Atorvastatin Calcium 20 MG TAB PO SCH (20:31)
[2019-07-08 04:50] LABS: INR-International Normal Ratio 2.3; Prothrombin Time 25.3 sec (12.0-14.7)
[2019-07-08] MEDS: Mometasone 200 MCG/Formoterol 5 MCG 120 PUFF INHALER INH SCH ×3 (07:11→18:51)
[2019-07-08] MEDS: Amoxicillin/Potassium Clav 875 MG TAB PO SCH (08:18)
[2019-07-08] MEDS: Spironolactone 25 MG TAB PO SCH (08:18)
[2019-07-08] MEDS: Ascorbic Acid 500 mg Chewable Tablet PO SCH (08:18)
[2019-07-08] MEDS: Famotidine 20 MG TAB PO SCH (08:18)
[2019-07-08] MEDS: Enoxaparin Sodium 100 MG/ML SYRINGE SC SCH (08:19)
[2019-07-08] MEDS: Ferrous Sulfate 325 MG TAB PO SCH (08:19)
[2019-07-08] MEDS: Colchicine 0.6 MG TAB PO SCH (09:19)
[2019-07-08] MEDS: Furosemide 80 MG TAB PO SCH (09:28)
[2019-07-08] MEDS: HumaLOG 300 UNITS/3 ML VIAL SC PRN (11:56)
[2019-07-08 13:24] LABS: Anion Gap 12 mmol/L (10-20); BUN (Urea Nitrogen) 19 mg/dL (9.8-20.1); Calc. Creatinine Clearance 54 mL/min (70-130); Calcium 10.6 mg/dL (7.8-10.44); Carbon Dioxide 26 mmol/L (23-31); Chloride 104 mmol/L (98-107); Estimated GFR-MDRD 49; Glucose 153 mg/dL (80-115); Potassium 3.8 mmol/L (3.5-5.1); Sodium 138 mmol/L (136-145)
[2019-07-08 16:38] VITALS: BP 129/60; TEMP 98.4
[2019-07-08] MEDS: Warfarin Sodium 5 MG TAB PO SCH (17:59)
--- NOTE | 2019-07-08 21:50 | DIS ---
DATE OF ADMISSION: 07/01/2019 DATE OF DISCHARGE: 07/08/2019 DISCHARGE DIAGNOSES: As of the followin. Sepsis from pneumonia, COVID negative. 2. Electrolyte imbalance. 3. Mechanical mitral valve. 4. Hypercalcemia. 5. History of multiple myeloma. 6. Lower extremity edema, left the left greater than right. 7. Gout, acute flare. 8. Severe tricuspid regurgitation. 9. Chronic kidney disease, stage 3. HOSPITAL COURSE: The patient is a 69-year-old female, who initially presented to the hospital on 06/30, please refer to the H and P for further details with complaints of lower extremity swelling. At this time, she stated that she has been diagnosed with leukemia and has been receiving chemotherapy. She was tested for COVID and she was negative. In the ED, she was noted to have a fever of 101.5. At this time, sepsis workup was initiated. Infectious Disease was also consulted. The patient was initially noted to have a supratherapeutic INR. Her Coumadin was held and then once her INR improved, she was restarted back on her Coumadin. The goal of the INR to be between 2.5 and 3.5 due to mechanical valve. The patient had a lower extremity venogram, which did not show any DVTs. She also had an echocardiogram, which indicated an EF of 55% to 60% with severely dilated left atrium, severely enlarged right ventricle, and severe tricuspid regurgitation. She also had a CT chest, which indicated bibasilar infiltrate appearing lung changes, cardiomegaly, and mild ascites. At this time, patient was initially put on broad-spectrum antibiotics and then her antibiotics were narrowed. The patient also was noted to have hypercalcemia. She was given a dose of Zometa and given some IV hydration. Her calcium on discharge is 10.6. She also had some mildly elevated uric acid, which time colchicine was also initiated. The patient also had some neck pain, which seemed to improve after starting the colchicine. The patient was on Revlimid, which was initially held given her acute infectious etiology. I cur-sided Oncology who recommended restarting, if she is not neutropenic and has started her back on the Revlimid. The patient will take a total of 14 day of Augmentin. She has received already 7 days. She will need 7 more days of Augmentin. I have decreased her colchicine to 0.6 p.o. daily. She will probably also need allopurinol and have continued her Lasix. Her INR on discharge was 2.3. She was getting Lovenox in between and her Lovenox has been discontinued. She did receive an a.m. dose on 07/07. She was initially receiving 10 mg of Coumadin. However, now I am going to put her back on her home dose of 5 mg. The patient is going to be discharged to inpatient rehab. PHYSICAL EXAMINATION: VITAL SIGNS: Temperature of 98.4, 75, 60, 93% on room air, 129/60. GENERAL: She is awake, alert, and oriented x3. Does not appear in distress. CV: S1, S2 present. No murmurs, rubs or gallops. ABDOMEN: Soft, nontender. Bowel sounds are present x2. EXTREMITIES: Lower extremity, she has chronic venous changes and lower extremity edema, left greater than right. MEDICATIONS: 1. Augmentin 875 every 12 hours for the next 7 days, total 14 days. 2. Colchicine 0.6 mg daily. 3. Spironolactone 25 mg daily. 4. Glipizide 5 mg daily. 5. Ascorbic acid 500 mg daily. 6. Atorvastatin 20 mg at bedtime. 7. Lasix 80 mg daily. 8. Omeprazole 20 mg twice daily. 9. Revlimid 10 mg daily. 10. Warfarin 5 mg daily. 11. Iron 325 daily. The patient will be discharged to inpatient rehab and she will follow up with her oncology who is in [place]. Job ID: [id number]
[2019-07-09 15:27] LABS: ANA Symphony (Qualitative) Negative (Negative); ANA Symphony (Quantitative) 0.3 Ratio (< 0.7 Negative)
== END 2019-07-08 19:10 | DRG 871 ==
LOC: ERS 01:27 → 2SW 05:06 → 2NO 20:32
PROVIDERS: ADMIT Hospitalist; ATTEND Hospitalist
PROC: 8E0ZXY6 Isolation (ICD-10-PCS; principal; 2019-07-01)
DX: A41.9 Sepsis, unspecified organism (principal); J18.9 Pneumonia, unspecified organism; C90.00 Multiple myeloma not having achieved remission; R18.8 Other ascites; I48.20 Chronic atrial fibrillation, unspecified; L03.116 Cellulitis of left lower limb; N17.9 Acute kidney failure, unspecified; I13.0 Hypertensive heart and chronic kidney disease with heart failure and stage 1 through stage 4 chronic kidney disease, or unspecified chronic kidney disease; Z20.828 Contact with and (suspected) exposure to other viral communicable diseases; E87.8 Other disorders of electrolyte and fluid balance, not elsewhere classified; E83.52 Hypercalcemia; M10.9 Gout, unspecified; N18.3 Chronic kidney disease, stage 3 (moderate); D89.9 Disorder involving the immune mechanism, unspecified; I50.9 Heart failure, unspecified; E11.21 Type 2 diabetes mellitus with diabetic nephropathy; I07.1 Rheumatic tricuspid insufficiency; R79.1 Abnormal coagulation profile; D47.3 Essential (hemorrhagic) thrombocythemia; D63.1 Anemia in chronic kidney disease; E78.5 Hyperlipidemia, unspecified; E83.42 Hypomagnesemia; I50.810 Right heart failure, unspecified; E78.00 Pure hypercholesterolemia, unspecified; R04.0 Epistaxis; Z98.51 Tubal ligation status; Z79.01 Long term (current) use of anticoagulants; Z95.2 Presence of prosthetic heart valve; Z79.4 Long term (current) use of insulin
CPT/HCPCS: 36415; 36416; 51701; 71045; 71250; 80048; 80053; 80076; 81001; 81003; 81015; 82306; 82553; 83605; 83735; 83880; 83970; 84484; 84550; 85014; 85018; 85025; 85027; 85049; 85379; 85610; 85730; 86038; 86225; 87040; 87086; 87449; 87497; 87635; 87899; 93005; 93306; 93798; 93970; 94760; 96365; J0456; J0692; J0696; J1650; J1940; J3370; J3430; J3475; J3489; J3490; J7050; U0003

== ENCOUNTER 2022-08-04 05:01 | Inpatient (IN) | payer MEDICARE, OTHER, MEDICAID ==
[2022-08-04] MEDS ORDERED: NOREPINEPHRINE 8 MG/250 ML-D5W 250 ML ONE (05:12)
[2022-08-04] MEDS ORDERED: Phytonadione 10 MG/ML AMP ONE (05:47)
[2022-08-04] MEDS ORDERED: Furosemide 40 MG/4 ML VIAL ONE (05:47)
[2022-08-04 05:50] LABS: #Monocytes 1.2 thou/uL (0.11-0.59); #Neutrophils 3.8 thou/uL (1.40-6.50); %Basophils 0.6 % (0.0-1.0); %Lymphocytes 6.9 % (21.0-51.0); %Monocytes 21.9 % (0.0-10.0); %Neutrophils 70.2 % (42.0-75.0); Hemoglobin 5.8 g/dL (12.0-16.0); Manual Diff?? YES; Mean Corpuscular HGB CONC 33.5 g/dL (32.0-36.0); Mean Corpuscular Hemoglobin 28.2 pg (27.0-31.0); Mean Platelet Volume 10.6 fL (7.4-10.4); Platelet Count 146 10x3/uL (130-400); RBC Distribution Width 19.8 % (11.5-14.5); Red Blood Cell (RBC) Count 2.06 mill/uL (4.20-5.40); White Blood Cell (WBC) Count 5.4 10x3/uL (4.8-10.8)
[2022-08-04 06:04] LABS: PTT 53.6 sec (22.9-36.1); Prothrombin Time 82.7 sec (12.0-14.7)
[2022-08-04 06:08] LABS: INR-International Normal Ratio 9.7
[2022-08-04 06:18] LABS: ALT (SGPT) 8 U/L (8-55); AST (SGOT) 12 U/L (5-34); Albumin 2.8 g/dL (3.4-4.8); Alkaline Phosphatase 117 U/L (40-110); Anion Gap 16 mmol/L (10-20); BUN (Urea Nitrogen) 119 mg/dL (9.8-20.1); Bilirubin, Total 0.4 mg/dL (0.2-1.2); Calc. Creatinine Clearance 0 mL/min (70-130); Calcium 9.8 mg/dL (7.8-10.44); Carbon Dioxide 25 mmol/L (23-31); Chloride 105 mmol/L (98-107); Estimated GFR 29; Globulin 2.7 g/dL (2.4-3.5); Glucose 203 mg/dL (83-110); Potassium 5.2 mmol/L (3.5-5.1); Protein, Total 5.5 g/dL (5.8-8.1); Sodium 141 mmol/L (136-145)
[2022-08-04 06:20] LABS: Anisocytosis MARKED = >30 cells HPF (0-5); Band 4 % (5-11); CellaVision Operator ID LAB.CLH1; Hypochromia MODERATE=16-30 cells HPF (0-5); Large Platelets 2.8 % (0-5); Lymphocytes 6 % (21-51); Macrocytosis MODERATE=16-30 cells HPF (0-5); Monocytes 11 % (0-10); Neutrophil 76 % (42-75); Nucleated RBC (Manual Ct) 3 % (0); Other Cell Types 2.8; Platelet Adequacy Comment Platelets Normal; Polychromasia MODERATE = 3-4 cells HPF (0-2); Smudge Cells 6.4 %; Target Cells MODERATE= 6-15 cells HPF (0-1); Total Cell Count 109
[2022-08-04] MEDS ORDERED: [UNRECOGNIZED DRUG - OTHER] IV SCH (06:30)
[2022-08-04] MEDS ORDERED: HUMAN PROTHROMBIN COMPLX IV SCH (06:30)
[2022-08-04] MEDS ORDERED: HUM PROTHROMBIN CPLX IV SCH (06:30)
[2022-08-04] MEDS ORDERED: Pantoprazole 40 MG VIAL ONE (06:36)
[2022-08-04 06:40] LABS: CKMB 3.1 ng/mL (0-6.6)
[2022-08-04] MEDS ORDERED: NOREPINEPHRINE 8 MG/250 ML-D5W 250 ML IVPB SCH (06:45)
[2022-08-04] MEDS ORDERED: Mineral Oil ENEMA PR SCH (08:15)
[2022-08-04] MEDS ORDERED: Senokot S 8.6-50 MG TAB PO PRN (08:20)
[2022-08-04] MEDS ORDERED: Acetaminophen 650 MG Suppository PR PRN (08:20)
[2022-08-04 08:57] LABS: Lactic Acid 2.1 mmol/L (0.5-2.2)
[2022-08-04 09:03] LABS: Creatinine, Urine Less than 20.00 mg/dL (47-110); Protein, Urine Random Quant Less than 10 mg/dL (1-14); Sodium, Urine 60 mmol/L (Not Available); Urea Nitrogen, Random Urine 435 mg/dl
[2022-08-04 09:22] LABS: Troponin I 0.061 ng/mL (< 0.028)
[2022-08-04] MEDS ORDERED: Insulin Regular 300 UNITS/3 ML VIAL SC PRN (10:45)
[2022-08-04] MEDS ORDERED: Glucagon 1 MG/ML KIT IM PRN (10:45)
[2022-08-04] MEDS ORDERED: Dextrose 5% in Water 1,000 ML IV PRN (10:45)
[2022-08-04] MEDS ORDERED: Dextrose 50% Abboject 50 ML SYRINGE SLOW IVP PRN (10:45)
[2022-08-04 11:55] LABS: Hemoglobin 7.7 g/dL (12.0-16.0)
[2022-08-04 12:07] LABS: INR-International Normal Ratio 1.6
[2022-08-04 12:31] LABS: Troponin I 0.042 ng/mL (< 0.028)
[2022-08-04 13:54] LABS: Bacteria/HPF 1+ HPF (None Seen); Bilirubin Negative (Negative); Blood, Urine Negative (Negative); CAUTI Indications for Culture Alt mental st,lethar; Clarity Clear (Clear); Glucose, Urine (Dipstick) 500 mg/dL (Negative); Ketone, Urine Negative (Negative); Leukocyte 75 Leu/uL (Negative); Nitrite Negative (Negative); Protein, Urine (Dipstick) Negative (Neg-Trace); RBC/HPF 0-3 HPF (0-3); Specific Gravity, Urine 1.011 (1.002-1.036); Squamous Epithelial 0-3 HPF (0-3); Urobilinogen Normal mg/dL (Less than 2)
[2022-08-04 13:55] LABS: Urine Culture Reflex No No
[2022-08-04 14:35] LABS: Anion Gap 17 mmol/L (10-20); Calc. Creatinine Clearance 23 mL/min (70-130); Calcium 9.9 mg/dL (7.8-10.44); Carbon Dioxide 24 mmol/L (23-31); Chloride 104 mmol/L (98-107); Estimated GFR 31; Glucose 240 mg/dL (83-110); Potassium 5.3 mmol/L (3.5-5.1); Sodium 140 mmol/L (136-145)
[2022-08-04 14:46] LABS: BUN (Urea Nitrogen) 117 mg/dL (9.8-20.1)
[2022-08-04] MEDS: Insulin Regular 300 UNITS/3 ML VIAL SC PRN (16:55)
[2022-08-04 17:44] LABS: Troponin I 0.031 ng/mL (< 0.028)
[2022-08-04] MEDS: Mometasone 200 MCG/Formoterol 5 MCG 120 PUFF INHALER INH SCH (18:32)
[2022-08-04 18:52] LABS: Hemoglobin 8.6 g/dL (12.0-16.0)
[2022-08-04] MEDS: Pantoprazole 40 MG VIAL IVP SCH (21:05)
[2022-08-04] MEDS ORDERED: Morphine 2 MG/ML VIAL SLOW IVP PRN (21:19)
[2022-08-05 02:12] LABS: Actual Bicarbonate (HCO3a) 27.5 mEq/L (22-28); Base Excess (BEa) -2.4 mEq/L (-2.0 to +3.0); Calcium, Ionized (arterial) 1.35 mmol/L (1.12-1.30); Hematocrit-ABG 25 % (36.0-47.0); Hemoglobin (Hb) 8.5 g/dL (12.0-16.0); O2 Tension (PaO2), arterial 85.7 mmHg (> 70.0); Potassium - ABG Lab 4.79 mmol/L (3.70-5.30)
[2022-08-05 02:13] LABS: CO2 Tension 84.5 mmHg (35.0-45.0)
[2022-08-05 02:14] LABS: ALV-art Gradient 22.575 mmHg (0-20); Puncture Site RBA
[2022-08-05] MEDS ORDERED: Propofol BOLUS 1,000 MG/100 ML VIAL IV PRN (02:45)
[2022-08-05] MEDS ORDERED: Morphine 2 MG/ML VIAL SLOW IVP PRN (02:45)
[2022-08-05] MEDS ORDERED: Ventilator Sedation Protocol 1 EACH FS SCH (02:45)
[2022-08-05] MEDS ORDERED: Albumin 25% 25 GM/100 ML BOT IVPB SCH (02:45)
[2022-08-05] MEDS ORDERED: DISCONTINUE PREVIOUS NARCOTIC PAIN MEDICATIONS AND BENZODIAZEPINES FS SCH (02:45)
[2022-08-05] MEDS ORDERED: Lorazepam 2 MG/ML VIAL SLOW IVP PRN (02:45)
[2022-08-05] MEDS ORDERED: Fentanyl BOLUS 250 ML IVPB PRN (02:45)
[2022-08-05] MEDS: Fentanyl CADD 100 ML IV SCH ×2 (02:59→20:50)
[2022-08-05] MEDS ORDERED: Sodium Chloride 0.9% 500 ML IV SCH ×2 (03:00→06:45)
[2022-08-05 03:09] LABS: Actual Bicarbonate (HCO3a) 23.6 mEq/L (22-28); Base Excess (BEa) -0.2 mEq/L (-2.0 to +3.0); CO2 Tension 34.7 mmHg (35.0-45.0); Calcium, Ionized (arterial) 1.25 mmol/L (1.12-1.30); Carboxyhemoglobin (COHb) 2.8 gm% (0.0-3.0); Hematocrit-ABG 24 % (36.0-47.0); O2 Tension (PaO2), arterial 181.9 mmHg (> 70.0); Potassium - ABG Lab 4.52 mmol/L (3.70-5.30); pH, Arterial 7.451 (7.35-7.45)
[2022-08-05 03:15] LABS: ALV-art Gradient -11.375 mmHg (0-20); Puncture Site RBA
[2022-08-05] MEDS: Propofol 1,000 MG/100 ML VIAL IV PRN (03:45)
[2022-08-05 04:42] LABS: BUN (Urea Nitrogen) 127 mg/dL (9.8-20.1)
[2022-08-05 04:44] LABS: ALT (SGPT) 9 U/L (8-55); AST (SGOT) 12 U/L (5-34); Albumin 3.1 g/dL (3.4-4.8); Alkaline Phosphatase 113 U/L (40-110); Anion Gap 18 mmol/L (10-20); Bilirubin, Total 1.4 mg/dL (0.2-1.2); Calc. Creatinine Clearance 20 mL/min (70-130); Calcium 10.4 mg/dL (7.8-10.44); Carbon Dioxide 23 mmol/L (23-31); Chloride 108 mmol/L (98-107); Estimated GFR 27; Globulin 2.8 g/dL (2.4-3.5); Glucose 222 mg/dL (83-110); Potassium 4.7 mmol/L (3.5-5.1); Protein, Total 5.9 g/dL (5.8-8.1); Sodium 144 mmol/L (136-145)
[2022-08-05 06:17] LABS: Magnesium 2.1 mg/dL (1.6-2.6)
[2022-08-05] MEDS: Insulin Regular 300 UNITS/3 ML VIAL SC PRN ×2 (06:27→11:50)
[2022-08-05 06:31] LABS: Hemoglobin 7.7 g/dL (12.0-16.0); Mean Corpuscular HGB CONC 34.1 g/dL (32.0-36.0); Mean Corpuscular Hemoglobin 27.8 pg (27.0-31.0); Mean Corpuscular Volume 81.6 fl (78.0-98.0); Mean Platelet Volume 10.9 fL (7.4-10.4); RBC Distribution Width 20.2 % (11.5-14.5); Red Blood Cell (RBC) Count 2.77 mill/uL (4.20-5.40); White Blood Cell (WBC) Count 8.3 10x3/uL (4.8-10.8)
[2022-08-05 07:01] LABS: Manual Diff?? YES
[2022-08-05 07:03] LABS: Delete Auto Diff?? YES; Platelet Count 118 10x3/uL (130-400)
[2022-08-05] MEDS: Mometasone 200 MCG/Formoterol 5 MCG 120 PUFF INHALER INH SCH ×2 (07:40→18:36)
[2022-08-05] MEDS: Pantoprazole 40 MG VIAL IVP SCH ×2 (07:42→20:04)
[2022-08-05] MEDS: Sodium Chloride 0.9% 1,000 ML IV SCH (07:42)
[2022-08-05 07:54] LABS: Burr Cells MODERATE= 6-15 cells HPF (0-1); CellaVision Operator ID LAB.GE; Lymphocytes 2 % (21-51); Monocytes 7 % (0-10); Neutrophil 91 % (42-75); Nucleated RBC (Manual Ct) 5 % (0); Platelet Adequacy Comment Platelets Decreased; Polychromasia SLIGHT = 2-3 cells HPF (0-2); Smudge Cells 5.9 %; Total Cell Count 101
[2022-08-05] MEDS ORDERED: Fentanyl CADD 100 ML ONE (20:46)
[2022-08-06] MEDS: Propofol 1,000 MG/100 ML VIAL IV PRN (01:04)
[2022-08-06] MEDS: Sodium Chloride 0.9% 1,000 ML IV SCH (01:04)
[2022-08-06] MEDS: Mometasone 200 MCG/Formoterol 5 MCG 120 PUFF INHALER INH SCH ×2 (07:02→19:08)
[2022-08-06 07:51] LABS: Hemoglobin 7.3 g/dL (12.0-16.0); Manual Diff?? YES; Mean Corpuscular HGB CONC 33.8 g/dL (32.0-36.0); Mean Corpuscular Hemoglobin 27.9 pg (27.0-31.0); Mean Corpuscular Volume 82.4 fl (78.0-98.0); Platelet Count 104 10x3/uL (130-400); RBC Distribution Width 21.6 % (11.5-14.5); Red Blood Cell (RBC) Count 2.62 mill/uL (4.20-5.40); White Blood Cell (WBC) Count 6.6 10x3/uL (4.8-10.8)
[2022-08-06 07:55] LABS: Delete Auto Diff?? YES
[2022-08-06 08:12] LABS: Albumin 2.9 g/dL (3.4-4.8); Anion Gap 20 mmol/L (10-20); BUN (Urea Nitrogen) 115 mg/dL (9.8-20.1); BUN/Creatinine Ratio 58.97; Calc. Creatinine Clearance 19 mL/min (70-130); Calcium 10.6 mg/dL (7.8-10.44); Carbon Dioxide 19 mmol/L (23-31); Chloride 117 mmol/L (98-107); Estimated GFR 27; Glucose 210 mg/dL (83-110); Potassium 3.9 mmol/L (3.5-5.1)
[2022-08-06 08:22] LABS: Sodium 152 mmol/L (136-145)
[2022-08-06 08:24] LABS: Anisocytosis SLIGHT = 6-15 cells HPF (0-5); Band 5 % (5-11); Hypochromia SLIGHT = 6-15 cells HPF (0-5); Lymphocytes 1 % (21-51); Monocytes 12 % (0-10); Neutrophil 82 % (42-75); Nucleated RBC (Manual Ct) 7 % (0); Ovalocytes SLIGHT = 2-5 cells HPF (0-1); Platelet Adequacy Comment Platelets Decreased; Polychromasia MODERATE = 3-4 cells HPF (0-2); Target Cells MODERATE= 6-15 cells HPF (0-1); Tear Drops SLIGHT = 2-5 cells HPF (0-1); Total Cell Count 102
[2022-08-06] MEDS ORDERED: Potassium Phosphate 22 MMOL in Sodium Chloride 0.9% 250 ML 250 ML IVPB SCH (08:30)
[2022-08-06] MEDS: Pantoprazole 40 MG VIAL IVP SCH ×2 (09:09→20:47)
[2022-08-06] MEDS: Dextrose 5% in Water 1,000 ML IV SCH (09:09)
[2022-08-06] MEDS ORDERED: Sodium Chloride 0.45% 1,000 ML IV SCH (10:00)
[2022-08-06] MEDS: HumaLOG 300 UNITS/3 ML VIAL SC PRN ×2 (13:24→20:54)
[2022-08-06] MEDS ORDERED: Sodium Bicarbonate 50 MEQ in Dextrose 5% in Water 1,000 ML IV SCH (14:15)
[2022-08-06 14:48] LABS: Anion Gap 17 mmol/L (10-20); BUN (Urea Nitrogen) 114 mg/dL (9.8-20.1); Calc. Creatinine Clearance 20 mL/min (70-130); Calcium 10.4 mg/dL (7.8-10.44); Carbon Dioxide 21 mmol/L (23-31); Chloride 117 mmol/L (98-107); Estimated GFR 28; Glucose 222 mg/dL (83-110); Potassium 4.2 mmol/L (3.5-5.1)
[2022-08-06 15:09] LABS: Albumin 2.9 g/dL (3.4-4.8); Anion Gap 19 mmol/L (10-20); BUN (Urea Nitrogen) 114 mg/dL (9.8-20.1); BUN/Creatinine Ratio 60.64; Calc. Creatinine Clearance 20 mL/min (70-130); Calcium 10.4 mg/dL (7.8-10.44); Carbon Dioxide 20 mmol/L (23-31); Chloride 118 mmol/L (98-107); Estimated GFR 28; Glucose 221 mg/dL (83-110); Potassium 4.2 mmol/L (3.5-5.1); Sodium 153 mmol/L (136-145)
[2022-08-06 15:10] LABS: Sodium 151 mmol/L (136-145)
[2022-08-06 19:25] LABS: Anion Gap 19 mmol/L (10-20); BUN (Urea Nitrogen) 105 mg/dL (9.8-20.1); Calc. Creatinine Clearance 20 mL/min (70-130); Calcium 10.4 mg/dL (7.8-10.44); Carbon Dioxide 17 mmol/L (23-31); Chloride 120 mmol/L (98-107); Estimated GFR 27; Glucose 206 mg/dL (83-110); Potassium 3.9 mmol/L (3.5-5.1)
[2022-08-06 19:34] LABS: Sodium 152 mmol/L (136-145)
[2022-08-07] MEDS: HumaLOG 300 UNITS/3 ML VIAL SC PRN ×3 (03:49→16:10)
[2022-08-07] MEDS: Dextrose 5% in Water 1,000 ML IV SCH (03:49)
[2022-08-07 04:13] LABS: RBC Distribution Width 22.7 % (11.5-14.5)
[2022-08-07 04:14] LABS: Hemoglobin 7.6 g/dL (12.0-16.0); Mean Corpuscular HGB CONC 34.1 g/dL (32.0-36.0); Mean Corpuscular Hemoglobin 28.4 pg (27.0-31.0); Mean Corpuscular Volume 83.2 fl (78.0-98.0); Mean Platelet Volume 10.8 fL (7.4-10.4); Platelet Count 95 10x3/uL (130-400); Red Blood Cell (RBC) Count 2.68 mill/uL (4.20-5.40); White Blood Cell (WBC) Count 6.5 10x3/uL (4.8-10.8)
[2022-08-07 04:36] LABS: Phosphorus 2.4 mg/dL (2.3-4.7)
[2022-08-07 04:40] LABS: Albumin 2.9 g/dL (3.4-4.8); Anion Gap 18 mmol/L (10-20); BUN (Urea Nitrogen) 100 mg/dL (9.8-20.1); BUN/Creatinine Ratio 58.14; Calc. Creatinine Clearance 22 mL/min (70-130); Calcium 10.5 mg/dL (7.8-10.44); Carbon Dioxide 20 mmol/L (23-31); Chloride 117 mmol/L (98-107); Estimated GFR 31; Glucose 261 mg/dL (83-110); Magnesium 2.1 mg/dL (1.6-2.6); Phosphorus 2.4 mg/dL (2.3-4.7); Potassium 3.7 mmol/L (3.5-5.1); Sodium 151 mmol/L (136-145)
[2022-08-07] MEDS: Propofol 1,000 MG/100 ML VIAL IV PRN (05:48)
[2022-08-07] MEDS: Mometasone 200 MCG/Formoterol 5 MCG 120 PUFF INHALER INH SCH ×2 (06:32→18:49)
[2022-08-07] MEDS: Pantoprazole 40 MG VIAL IVP SCH ×2 (08:37→20:40)
[2022-08-07] MEDS ORDERED: Fentanyl CADD 100 ML ONE (09:03)
[2022-08-07] MEDS: Fentanyl CADD 100 ML IV SCH (09:16)
[2022-08-07] MEDS: Sodium Chloride 0.45% 1,000 ML IV SCH ×2 (10:38→22:26)
[2022-08-07] MEDS ORDERED: Sodium Bicarbonate Tab 325 MG TAB PER TUBE SCH (15:30)
[2022-08-07 15:55] LABS: Albumin 2.8 g/dL (3.4-4.8); Anion Gap 17 mmol/L (10-20); BUN (Urea Nitrogen) 85 mg/dL (9.8-20.1); Calc. Creatinine Clearance 22 mL/min (70-130); Calcium 10.6 mg/dL (7.8-10.44); Carbon Dioxide 19 mmol/L (23-31); Chloride 119 mmol/L (98-107); Estimated GFR 32; Glucose 174 mg/dL (83-110); Phosphorus 2.5 mg/dL (2.3-4.7); Potassium 3.6 mmol/L (3.5-5.1)
[2022-08-07 16:04] LABS: Sodium 151 mmol/L (136-145)
[2022-08-07] MEDS: Albumin 25% 25 GM/100 ML BOT IVPB SCH (17:18)
[2022-08-07] MEDS: Sodium Bicarbonate Tab 325 MG TAB PER TUBE SCH (20:40)
[2022-08-08] MEDS: Albumin 25% 25 GM/100 ML BOT IVPB SCH ×3 (00:08→12:56)
[2022-08-08] MEDS: Dextrose 5% in Water 1,000 ML IV SCH (00:31)
[2022-08-08] MEDS: HumaLOG 300 UNITS/3 ML VIAL SC PRN ×2 (04:18→17:48)
[2022-08-08] MEDS: Propofol 1,000 MG/100 ML VIAL IV PRN ×2 (04:52→17:48)
[2022-08-08 05:44] LABS: Hemoglobin 6.9 g/dL (12.0-16.0); Mean Corpuscular Hemoglobin 27.9 pg (27.0-31.0); Mean Corpuscular Volume 84.6 fl (78.0-98.0); Mean Platelet Volume 10.3 fL (7.4-10.4); RBC Distribution Width 22.9 % (11.5-14.5); Red Blood Cell (RBC) Count 2.47 mill/uL (4.20-5.40); White Blood Cell (WBC) Count 5.7 10x3/uL (4.8-10.8)
[2022-08-08 05:50] LABS: Platelet Count 76 10x3/uL (130-400)
[2022-08-08 06:08] LABS: Anion Gap 16 mmol/L (10-20); BUN (Urea Nitrogen) 80 mg/dL (9.8-20.1); Calc. Creatinine Clearance 24 mL/min (70-130); Calcium 10.8 mg/dL (7.8-10.44); Carbon Dioxide 23 mmol/L (23-31); Chloride 116 mmol/L (98-107); Estimated GFR 34; Glucose 158 mg/dL (83-110); Magnesium 2.2 mg/dL (1.6-2.6); Phosphorus 2.2 mg/dL (2.3-4.7); Potassium 3.7 mmol/L (3.5-5.1)
[2022-08-08 06:14] LABS: Sodium 151 mmol/L (136-145)
[2022-08-08] MEDS: Mometasone 200 MCG/Formoterol 5 MCG 120 PUFF INHALER INH SCH ×2 (07:57→18:52)
[2022-08-08] MEDS: Pantoprazole 40 MG VIAL IVP SCH ×2 (09:49→21:48)
[2022-08-08] MEDS: Sodium Bicarbonate Tab 325 MG TAB PER TUBE SCH ×3 (09:49→21:48)
[2022-08-08] MEDS: Sodium Chloride 0.45% 1,000 ML IV SCH (12:56)
[2022-08-08] MEDS ORDERED: Fentanyl CADD 100 ML ONE (13:08)
[2022-08-08] MEDS ORDERED: Potassium Phosphate 22 MMOL in Sodium Chloride 0.9% 250 ML 250 ML IVPB SCH (14:00)
[2022-08-08 14:55] LABS: Hemoglobin 7.7 g/dL (12.0-16.0)
[2022-08-09 04:13] LABS: Hemoglobin 8.3 g/dL (12.0-16.0); Manual Diff?? YES; Mean Corpuscular HGB CONC 33.2 g/dL (32.0-36.0); Mean Corpuscular Hemoglobin 28.2 pg (27.0-31.0); Mean Platelet Volume 11.6 fL (7.4-10.4); RBC Distribution Width 22.2 % (11.5-14.5); Red Blood Cell (RBC) Count 2.94 mill/uL (4.20-5.40); White Blood Cell (WBC) Count 7.6 10x3/uL (4.8-10.8)
[2022-08-09] MEDS: Sodium Chloride 0.45% 1,000 ML IV SCH (04:42)
[2022-08-09 04:50] LABS: Anion Gap 15 mmol/L (10-20); BUN (Urea Nitrogen) 69 mg/dL (9.8-20.1); Calc. Creatinine Clearance 24 mL/min (70-130); Calcium 9.6 mg/dL (7.8-10.44); Carbon Dioxide 21 mmol/L (23-31); Chloride 113 mmol/L (98-107); Estimated GFR 31; Glucose 179 mg/dL (83-110); Magnesium 2.2 mg/dL (1.6-2.6); Phosphorus 3.5 mg/dL (2.3-4.7); Potassium 4.1 mmol/L (3.5-5.1); Sodium 145 mmol/L (136-145)
[2022-08-09] MEDS: HumaLOG 300 UNITS/3 ML VIAL SC PRN (05:03)
[2022-08-09 05:11] LABS: Delete Auto Diff?? YES; Platelet Count 78 10x3/uL (130-400)
[2022-08-09 06:55] LABS: Anisocytosis MODERATE=16-30 cells HPF (0-5); Band 4 % (5-11); Burr Cells SLIGHT = 2-5 cells HPF (0-1); CellaVision Operator ID LAB.JMM; Large Platelets 5.8 % (0-5); Lymphocytes 11 % (21-51); Macrocytosis SLIGHT = 6-15 cells HPF (0-5); Metamyelocyte 2 % (0-0); Monocytes 7 % (0-10); Myelocyte 1 % (0-0); Neutrophil 76 % (42-75); Nucleated RBC (Manual Ct) 4 % (0); Platelet Adequacy Comment Platelets Decreased; Poikilocytosis SLIGHT = 6-15 cells HPF (0-5); Polychromasia SLIGHT = 2-3 cells HPF (0-2); Target Cells SLIGHT = 2-5 cells HPF (0-1); Total Cell Count 103
[2022-08-09] MEDS: Mometasone 200 MCG/Formoterol 5 MCG 120 PUFF INHALER INH SCH (07:07)
[2022-08-09] MEDS: Sodium Bicarbonate Tab 325 MG TAB PER TUBE SCH (08:21)
[2022-08-09] MEDS: Pantoprazole 40 MG VIAL IVP SCH (08:22)
[2022-08-09 08:48] VITALS: TEMP 98.2
[2022-08-09 10:14] VITALS: BP 96/49
[2022-08-09 11:03] VITALS: BMI 19.9
[2022-08-09] MEDS ORDERED: Morphine 4 MG/ML VIAL SLOW IVP PRN (12:02)
== END 2022-08-09 12:32 | disposition expired | DRG 377 ==
LOC: ERS 05:01 → CCU 07:32 → 2NO 08-05 18:35 → CCU 08-05 18:44
PROVIDERS: ADMIT Internal Medicine; ATTEND Internal Medicine
PROC: 30233N1 Transfusion of Nonautologous Red Blood Cells into Peripheral Vein, Percutaneous Approach (ICD-10-PCS; 2022-08-04)
PROC: 5A09357 Assistance with Respiratory Ventilation, Less than 24 Consecutive Hours, Continuous Positive Airway Pressure (ICD-10-PCS; 2022-08-04)
PROC: 3E033XZ Introduction of Vasopressor into Peripheral Vein, Percutaneous Approach (ICD-10-PCS; 2022-08-04)
PROC: 30283B1 Transfusion of Nonautologous 4-Factor Prothrombin Complex Concentrate into Vein, Percutaneous Approach (ICD-10-PCS; 2022-08-04)
PROC: 0BH17EZ Insertion of Endotracheal Airway into Trachea, Via Natural or Artificial Opening (ICD-10-PCS; principal; 2022-08-05)
PROC: 5A1955Z Respiratory Ventilation, Greater than 96 Consecutive Hours (ICD-10-PCS; 2022-08-05)
PROC: 4A133R1 Monitoring of Arterial Saturation, Peripheral, Percutaneous Approach (ICD-10-PCS; 2022-08-05)
DX: K92.1 Melena (principal); G93.41 Metabolic encephalopathy; J96.02 Acute respiratory failure with hypercapnia; I21.A1 Myocardial infarction type 2; J96.01 Acute respiratory failure with hypoxia; N17.9 Acute kidney failure, unspecified; I13.0 Hypertensive heart and chronic kidney disease with heart failure and stage 1 through stage 4 chronic kidney disease, or unspecified chronic kidney disease; R64 Cachexia; Z68.1 Body mass index [BMI] 19.9 or less, adult; C90.00 Multiple myeloma not having achieved remission; D62 Acute posthemorrhagic anemia; E87.0 Hyperosmolality and hypernatremia; C95.90 Leukemia, unspecified not having achieved remission; D68.32 Hemorrhagic disorder due to extrinsic circulating anticoagulants; E87.21 Acute metabolic acidosis; Z51.5 Encounter for palliative care; Z66 Do not resuscitate; I95.9 Hypotension, unspecified; E78.00 Pure hypercholesterolemia, unspecified; E11.22 Type 2 diabetes mellitus with diabetic chronic kidney disease; N18.30 Chronic kidney disease, stage 3 unspecified; J44.9 Chronic obstructive pulmonary disease, unspecified; I27.20 Pulmonary hypertension, unspecified; D69.6 Thrombocytopenia, unspecified; G89.29 Other chronic pain; R62.7 Adult failure to thrive; D63.1 Anemia in chronic kidney disease; R16.0 Hepatomegaly, not elsewhere classified; E86.0 Dehydration; E87.5 Hyperkalemia; I05.9 Rheumatic mitral valve disease, unspecified; I48.0 Paroxysmal atrial fibrillation; E83.39 Other disorders of phosphorus metabolism; M41.9 Scoliosis, unspecified; R57.1 Hypovolemic shock; Z98.51 Tubal ligation status; Z95.4 Presence of other heart-valve replacement; Z79.899 Other long term (current) drug therapy; Z79.01 Long term (current) use of anticoagulants; Z87.820 Personal history of traumatic brain injury; L89.159 Pressure ulcer of sacral region, unspecified stage; L89.899 Pressure ulcer of other site, unspecified stage; I87.2 Venous insufficiency (chronic) (peripheral); T45.515A Adverse effect of anticoagulants, initial encounter; R53.81 Other malaise; I50.810 Right heart failure, unspecified
CPT/HCPCS: 36415; 36416; 36430; 36600; 71045; 76705; 80048; 80053; 80069; 81001; 82105; 82550; 82553; 82570; 82805; 83605; 83735; 83880; 84100; 84145; 84156; 84300; 84540; 85025; 85027; 86140; 86850; 86900; 86901; 87040; 87086; 93005; 93306; 94002; 94003; 94660; 94760; 96365; 96366; 96375; 97139; C9113; J1815; J1940; J2270; J2272; J2704; J3010; J3430; J7030; J7050; J7070; J7168; P9016; P9047